=== PATIENT | male | born 1955 | race Caucasian/White ===

== ENCOUNTER → 2017-07-13 16:34 | Outpatient (CLI) | payer BC, SELFPAY ==
[2017-07-13 17:07] LABS: Bilirubin Urine UA NEGATIVE (NEGATIVE); Color Urine UA YELLOW; Glucose Urine UA NEGATIVE (Normal); Ketones Urine UA TRACE (NEGATIVE); Leukocyte Esterase Urine UA 1+ (NEGATIVE); Nitrite Urine UA POSITIVE (Negative); Occult Blood Urine UA NEGATIVE (Negative); Protein Urine UA NEGATIVE (Negative); Specific Gravity Urine UA 1.025 (1.000-1.035); Urobilinogen Urine UA 0.2 E.U./dL (0.2); pH Urine UA 5.5 (4.5-8.0)
[2017-07-13 17:27] LABS: Appearance Urine UA CLOUDY
[2017-07-13 17:43] LABS: Bacteria Urine Many (>30); Culture Indicated Urine Specimen Cultured; RBC Urine 0-1/HPF (0-5/HPF); WBC Urine 30-100/HPF (0-5/HPF)
[2017-07-13 17:52] LABS: BUN Creatinine Ratio 24.4 (6-22); Blood Urea Nitrogen 22 mg/dL (9-20); Calcium 8.9 mg/dL (8.4-10.2); Carbon Dioxide 31 mmol/L (22-32); Chloride 101 mmol/L (98-107); Estimated Glomerular Filt Rate > 60.0 mL/min (>60); Glucose 110 mg/dL (80-110); HEMOLYSIS 16 (0-50); Potassium 4.7 mmol/L (3.4-5.1); Sodium 142 mmol/L (137-145)
== END ==
PROVIDERS: PCP Family Medicine; Visit Provider Internal Medicine
DX: R35.0 Frequency of micturition (principal); J20.9 Acute bronchitis, unspecified
CPT/HCPCS: 36415; 80048; 81001; 87077; 87086; 87186

== ENCOUNTER 2017-07-13 22:21 | Emergency (ER) | payer BC, SELFPAY ==
[2017-07-13 22:25] VITALS: BP 156/102; PULSE 81; RESP 20; TEMP 36.7; O2SAT 98; BMI 27.6
--- NOTE | 2017-07-13 22:32 | DI.RAD.S_ITS ---
PROCEDURE: XR CHEST 2V INDICATIONS: Fever productive cough TECHNIQUE: 2 views of the chest were acquired. COMPARISON: [facility], CHEST 2 VIEW, 11/28/2012, 14:44. [facility], CHEST 2 VIEW, 12/01/2011, 13:07. FINDINGS: Surgical changes and devices: Bilateral shoulder postoperative change. Lungs and pleura: No pleural effusions or pneumothorax. Lungs are clear. Mediastinum: Mediastinal contours are normal. Heart size is normal. Bones and chest wall: No suspicious bony abnormalities. Soft tissues appear unremarkable. Old rib fractures. IMPRESSION: No radiographic evidence of acute cardiopulmonary pathology. Dictated by: Contreras Contreras M.D. on 07/14/2017 at 9:05 Approved by: Contreras Contreras M.D. on 07/14/2017 at 9:06
--- NOTE | 2017-07-13 22:33 | ED_ITS ---
HPI - URI/Sore Throat General Chief Complaint: Upper Respiratory Symptoms Stated Complaint: BLADDER INFECTION UPPER RESP Time Seen by Provider: 07/13/17 22:23 Source: patient Mode of arrival: ambulatory Limitations: no limitations History of Present Illness HPI Narrative: 61-year-old male here for evaluation for urinary and respiratory complaints. Patient states that for many months now he has had dysuria. He states that he works at a job where he has to hold his urine for an extended period of time and has limited access to water. He also states that he has had several weeks of a chronic cough that is keeping and up at night. He went to his primary doctor this morning and was given a prescription for Cefdinir he states he took 1 dose of this antibiotic. He came into the emergency department today because he did not receive a chest x-ray at his primary doctor' s visit and is still having urinary symptoms Related Data Previous Rx's Medication Instructions Recorded econazole 1 freddy TOPICAL BID #30 gm 09/15/16 amlodipine [Norvasc] 5 mg PO QDAY #90 tab 03/26/17 cefdinir 300 mg capsule 300 mg PO Q12H 10 Days #20 cap 07/13/17 levofloxacin 500 mg PO Q24H 5 Days #5 tab 07/13/17 phenazopyridine 100 mg PO TID PRN 2 Days #6 tab 07/13/17 Allergies Allergy/AdvReac Type Severity Reaction Status Date / Time amoxicillin [AMOXICILLIN] Allergy Unknown Verified 07/13/17 22:40 azithromycin [AZITHROMYCIN] Allergy Unknown Verified 07/13/17 22:40 erythromycin base Allergy Unknown Verified 07/13/17 22:40 [ERYTHROMYCIN BASE] Review of Systems Constitutional Denies chills, Denies fever(s), Denies lethargy and Denies weakness Cardiovascular Denies chest pain, Denies irregular heart rhythm, Denies lightheadedness, Denies palpitations, Denies dyspnea and Denies orthopnea Respiratory Reports chest congestion, Reports cough, Reports pain with cough and Denies dyspnea Gastrointestinal Gastrointestinal: Denies abdominal pain, Denies change in bowel habits, Denies diarrhea, Denies nausea and Denies vomiting Genitourinary Reports dysuria, Denies flank pain, Reports urinary frequency and Reports urinary hesitancy Musculoskeletal Denies back pain, Denies muscle weakness, Denies numbness and Denies tingling Integumentary/Breasts Denies pruritus, Denies erythema, Denies rash and Denies wounds Neurologic Denies numbness, Denies tingling and Denies weakness Endocrine Denies palpitations Hematologic/Lymphatic Denies easy bruising [facility] Medical History Work related injury (Chronic 2011) Surgical History History of shoulder surgery (Resolved 1977) Inguinal hernia (Resolved 1999) Social History Smoking Status: Never smoker Exam Initial Vital Signs Initial Vital Signs: Vital Signs Temperature 98.1 F 07/13/17 22:25 Pulse Rate 81 07/13/17 22:25 Respiratory Rate 20 07/13/17 22:25 Blood Pressure 156/102 H 07/13/17 22:25 Pulse Oximetry 98 07/13/17 22:25 Resp Effort & Inspection: normal respiratory effort, able to speak in complete sentences, no respiratory distress and no use of accessory muscles Auscultation: clear to auscultation bilaterally, no rales, no rhonchi and no wheezes GI Inspection: non-distended Palpation: soft, no hepatosplenomegaly, No guarding, No pulsatile mass and No tender Auscultation: normal bowel sounds Back/Spine/Pelvis Back: No back tenderness and No CVA tenderness Skin General: no rashes or lesions noted, No jaundice and No petechiae Neuro General: alert, oriented x3, gait normal and no focal motor deficits Speech: speech normal Course Orders Ordered: ED Orders 07/13/17 22:32 XR chest 2V Stat Discontinued Medications Phenazopyridine HCl (Pyridium) 100 mg PO NOW ONE Stop: 07/13/17 23:15 Last Admin: 07/13/17 23:25 Dose: 100 mg Vital Signs - 8 hr 07/13/17 22:25 07/13/17 23:29 Temperature 98.1 F 98.2 F Pulse Rate 81 82 Respiratory Rate 20 20 Blood Pressure 156/102 H 156/90 H Pulse Oximetry 98 99 MDM - URI/Sore Throat Imaging Data Chest x-ray: Attestation: I personally reviewed and interpreted this imaging study as follows: My impression: Normal size heart No acute process No signs of pneumonia MDM Narrative Medical decision making narrative: Patient had a postvoid residual of 0 cc. Not in respiratory distress. Chest x-ray does not show signs of a focal consolidation. Had a long discussion with the patient and his regarding his symptoms. Informed him that the antibiotic that he was given by his primary doctor should cover any respiratory or urinary infections. Informed him that I am not surprised that he continue to have symptoms since he has only had 1 dose of the antibiotics. Informed him that I would not consider this a treatment failure since he has only had 1 dose. Informed him that if he did not want to take this antibiotic we could switch him to something else such as Levaquin however I did not feel that this was necessary. He stated that he would like to switch antibiotics. He was also given a prescription for Pyridium. Informed him that if his symptoms continue despite these antibiotics he did need to talk with his primary doctor about potentially seeing a urologist. He was given return precautions he expressed understanding and agreement with plan Discharge Plan Departure Patient Disposition: Home, Self-Care Clinical Impression: Upper respiratory infection, Dysuria Discharge Date/Time: 07/13/17 23:30 Interventions: ED Discharge Assessment Last Done: 07/13/17 23:29 Instructions: DI for Dysuria -- Adult Activity Restrictions/Additional Instructions: Stop the antibiotics you were given earlier today and start the antibiotics you were given during this visit. Take them as directed. If your symptoms do not improve then you need to talk with your primary doctor about a consult to see a urologist. Return to the emergency department for any new or worsening symptoms Prescriptions: New phenazopyridine 100 mg tablet 100 mg PO TID PRN (Reason: pain) 2 Days Qty: 6 RF: 0 levofloxacin 500 mg tablet 500 mg PO Q24H 5 Days Qty: 5 RF: 0 No Action econazole 1 % cream 1 freddy Topical BID Qty: 30 RF: 0 amlodipine [Norvasc] 5 MG tablet 5 mg PO QDAY Qty: 90 RF: 3 cefdinir 300 mg capsule 300 mg PO Q12H 10 Days Qty: 20 RF: 0
[2017-07-13] MEDS: PHENAZOPYRIDINE 100 MG TABLET PO (23:25)
[2017-07-13 23:29] VITALS: BP 156/90; PULSE 82; RESP 20; TEMP 36.8; O2SAT 99
== END 2017-07-13 23:30 | disposition home or self-care (01) ==
PROVIDERS: Emergency Provider Emergency Medicine; PCP Family Medicine
DX: J06.9 Acute upper respiratory infection, unspecified (principal); R30.0 Dysuria
CPT/HCPCS: 51798; 71046; 99283

== ENCOUNTER → 2017-07-21 09:54 | Outpatient (CLI) | payer BC, SELFPAY ==
[2017-07-21 10:18] LABS: Bacteria Urine None Seen; RBC Urine None Seen (0-5/HPF); WBC Urine None Seen (0-5/HPF)
[2017-07-21 11:01] LABS: Appearance Urine UA CLEAR; Bilirubin Urine UA NEGATIVE (NEGATIVE); Color Urine UA YELLOW; Glucose Urine UA NEGATIVE (Normal); Ketones Urine UA NEGATIVE (NEGATIVE); Leukocyte Esterase Urine UA NEGATIVE (NEGATIVE); Nitrite Urine UA Negative (Negative); Occult Blood Urine UA NEGATIVE (Negative); Protein Urine UA NEGATIVE (Negative); Specific Gravity Urine UA <=1.005 (1.000-1.035); Urobilinogen Urine UA 0.2 E.U./dL (0.2); pH Urine UA 6.5 (4.5-8.0)
== END ==
PROVIDERS: Family Provider Urology; Visit Provider Internal Medicine
DX: Z12.5 Encounter for screening for malignant neoplasm of prostate (principal); R30.0 Dysuria
CPT/HCPCS: 36415; 81001; 84153

== ENCOUNTER → 2017-10-01 14:01 | Outpatient (CLI) | payer BC, SELFPAY | PROVIDERS: PCP Family Medicine; Visit Provider Urology | DX: R97.20 Elevated prostate specific antigen [PSA] (principal) | CPT/HCPCS: 36415; 84153 ==

== ENCOUNTER → 2018-04-10 09:31 | Outpatient (CLI) | payer BC, SELFPAY ==
[2018-04-10 11:19] LABS: Alanine Aminotransferase 34 IU/L (21-72); Albumin 4.1 g/dL (3.5-5.0); Albumin Globulin Ratio 1.9 (1.0-2.8); Alkaline Phosphatase 83 U/L (38-126); Aspartate Aminotransferase 28 IU/L (17-59); Bilirubin Total 0.6 mg/dL (0.2-1.3); Blood Urea Nitrogen 24 mg/dL (9-20); Calcium 9.3 mg/dL (8.4-10.2); Carbon Dioxide 31 mmol/L (22-32); Chloride 102 mmol/L (98-107); Estimated Glomerular Filt Rate > 60.0 mL/min (>60); Globulin 2.2 g/dL (1.7-4.1); Glucose 56 mg/dL (80-110); HEMOLYSIS < 15 (0-50); Potassium 5.1 mmol/L (3.4-5.1); Sodium 141 mmol/L (137-145); Total Protein 6.3 g/dL (6.3-8.2)
== END ==
PROVIDERS: Family Provider Urology; PCP Student in an Organized Health Care Education/Training Program; Visit Provider Registered Nurse
DX: I10 Essential (primary) hypertension (principal)
CPT/HCPCS: 36415; 80053

== ENCOUNTER → 2018-04-12 11:14 | Outpatient (CLI) | payer BC, SELFPAY ==
[2018-04-12 12:49] LABS: Cholesterol 158 mg/dL (140-199); HDL Cholesterol 48 mg/dL (40-60); LDL Cholesterol Calculated 99 mg/dL (<100); Triglycerides 54 mg/dL (35-150)
[2018-04-12 15:12] LABS: Vitamin D 25 Hydroxy (D3) 37.3 ng/mL (30.0-100.0)
== END ==
PROVIDERS: PCP Student in an Organized Health Care Education/Training Program; Visit Provider Student in an Organized Health Care Education/Training Program
DX: E55.9 Vitamin D deficiency, unspecified (principal); Z13.220 Encounter for screening for lipoid disorders
CPT/HCPCS: 36415; 80061; 82306

== ENCOUNTER → 2018-09-07 08:34 | Outpatient (CLI) | payer BC, SELFPAY | PROVIDERS: PCP Student in an Organized Health Care Education/Training Program; Visit Provider Physician Assistant | DX: R30.0 Dysuria (principal) | CPT/HCPCS: 87077; 87086; 87186 ==

== ENCOUNTER → 2018-09-25 10:33 | Outpatient (CLI) | payer BC, SELFPAY ==
[2018-09-25 12:45] LABS: Prostate Specific Antigen 3.77 ng/mL (0.10-4.00)
== END ==
PROVIDERS: Family Provider Student in an Organized Health Care Education/Training Program; PCP Student in an Organized Health Care Education/Training Program; Visit Provider Urology
DX: Z12.5 Encounter for screening for malignant neoplasm of prostate (principal)
CPT/HCPCS: 36415; 84153

== ENCOUNTER 2019-02-07 08:08 | Day surgery (SDC) | payer BC, SELFPAY ==
[2019-02-07 08:23] VITALS: BP 148/80; PULSE 88; RESP 20; TEMP 36.2; O2SAT 98; BMI 26.9
[2019-02-07] MEDS: SODIUM CHLORIDE 0.9% 1,000 ML 200 ML IV (08:33)
--- NOTE | 2019-02-07 08:45 | PM.HP.1 ---
History of Present Illness History of Present Illness Date Patient Seen: 02/07/19 Time Patient Seen: 08:45 Chief complaint: [id number] SCREENING COLONOSCOPY Narrative: This is a 63-year-old man with no history of colonoscopy. He has no history of hematochezia or melena. He denies any family history of colon polyps or colon cancers. He is here for his 1st screening colonoscopy. ROS: Thirteen system review is otherwise negative other than as mentioned below and in HPI. PE: GENERAL: Well groomed and cooperative. Appears stated age. Answers questions promptly and appropriately. Vital signs noted. HENT: Normocephalic, atraumatic. Hearing intact. Oral mucosa is pink and moist. EYES: Conjunctiva pink, sclera white, no periorbital swelling. CARDIOVASCULAR: Regular rate. No pedal edema. RESPIRATORY: Non-tachypneic, breathing comfortably on room air. GASTROINTESTINAL: Abdomen soft and non-distended GENITALURINARY: No flank tenderness. MUSCULOSKELETAL: Equal tone and mass bilaterally. SKIN: Warm, dry, soft, appropriate color for ethnicity. No other lesions, rashes, or wounds. NEURO: Alert and Oriented X 3. No gross sensory deficits, or cognitive issues. PSYCH: Appropriate affect and mood. Patient History Medical History Obstructive sleep apnea of adult (Chronic) Snoring (Chronic) Work related injury (Chronic 2011) Surgical History History of inguinal hernia repair (Resolved 1999) History of shoulder surgery (Resolved 1977) Family & Social History Social History: household members spouse Tobacco & Substance use: Smoking Status Never smoker alcohol intake current alcohol intake frequency 0-2 drinks per day Substance Use Type does not use Meds Home Medications and Allergies Home Medications Medication Instructions Recorded Confirmed Type losartan 25 mg tablet 25 mg PO DAILY #90 tab 04/12/18 02/07/19 Rx naproxen 500 mg PO PRN PRN MDD prn 02/07/19 02/07/19 History Allergies Allergy/AdvReac Type Severity Reaction Status Date / Time azithromycin [AZITHROMYCIN] Allergy Unknown Verified 02/07/19 08:16 Exam Vital Signs (past 8 hours): - 02/07/19 08:23 Temperature 97.2 F L Pulse Rate 88 Respiratory Rate 20 Blood Pressure 148/80 H Pulse Oximetry 98 Oxygen Delivery Method Room Air Assessment & Plan Assessment and plan (1) Colon cancer screening: Current visit: Yes Status: Acute (2) At average risk for colon cancer: Current visit: Yes Status: Acute
[2019-02-07] MEDS: ONDANSETRON 4 MG/2 ML INJ IV (08:50)
[2019-02-07] MEDS: fentaNYL 250 MCG/5 ML INJ IV (08:55)
[2019-02-07] MEDS: MIDAZOLAM 5 MG/5 ML VIAL IV (08:56)
--- NOTE | 2019-02-07 09:10 | PM.OP.ENDO ---
Operative Date/Time/Diagnoses Date of procedure: 02/07/19 Time of procedure: 09:10 Pre-op diagnosis: Average risk for colon cancer Post-op diagnosis: same Procedure & Clinicians Study performed: Colonoscopy Same procedure as scheduled: Yes Indications: Average risk for colon cancer, never had a screening colonoscopy Surgeon: Ramona Trammell Procedure Notes SCOAP/Timeout: Performed Procedure in detail: The patient was brought to the room and placed in left lateral decubitus position with all bony prominences padded. A time-out was performed and then the patient was given procedural sedation starting with 4 mg of Versed and 100 mcg of fentanyl. Vitals were monitored throughout the procedure and remained stable. Once adequately sedated the procedure was begun. A rectal exam was performed revealing no abnormalities. The colonoscope was then introduced to the rectum and advanced to the cecum in the usual fashion. The cecum was identified by the appendiceal orifice, the mucosal tri-fold, and the ileocecal valve. The scope was then retracted while rotating side to side and examining each mucosal fold. At the conclusion of the procedure retroflexion was performed and small grade 1-2 internal hemorrhoids without stigmata of bleeding were seen. The scope was then withdrawn from the rectum the procedure was concluded. The patient tolerated the procedure well and was transferred to the PACU in stable condition. Scope withdrawal time: 7 Sedation minutes: 17 Specimen(s): none sent Complications: none Impression: Normal colon Post-procedure Recommendations: Colonscopy in 10 years (Or sooner if any concerning symptoms for colon polyps or cancers arise) Follow up: as needed Disposition: PACU
[2019-02-07 09:15] VITALS: BP 112/62; PULSE 61; RESP 14; TEMP 35.9; O2SAT 94
[2019-02-07 09:20] VITALS: BP 113/79; PULSE 61; RESP 11; O2SAT 94
--- NOTE | 2019-02-07 09:20 | SUR.PHASEI ---
IV fluids not scanned in pre op - see I&O
[2019-02-07 09:25] VITALS: BP 112/72; PULSE 61; RESP 16; O2SAT 93
[2019-02-07 09:40] VITALS: BP 109/66; PULSE 60; RESP 20; TEMP 36.1; O2SAT 94
== END 2019-02-07 09:45 | disposition home or self-care (01) ==
PROVIDERS: Family Provider Student in an Organized Health Care Education/Training Program; PCP Student in an Organized Health Care Education/Training Program; Visit Provider Surgery
PROC: 0DJD8ZZ Inspection of Lower Intestinal Tract, Via Natural or Artificial Opening Endoscopic (ICD-10-PCS; CPT 45378; principal; 2019-02-07 08:30)
DX: Z12.11 Encounter for screening for malignant neoplasm of colon (principal); G47.33 Obstructive sleep apnea (adult) (pediatric); K64.0 First degree hemorrhoids
CPT/HCPCS: 45378; 99152; J2250; J2405; J3010

== ENCOUNTER → 2019-03-25 13:31 | Outpatient (CLI) | payer BC, SELFPAY ==
[2019-03-25 15:49] LABS: Appearance Urine UA SL CLOUDY; Bilirubin Urine UA NEGATIVE (NEGATIVE); Color Urine UA YELLOW; Glucose Urine UA NEGATIVE (Negative); Ketones Urine UA NEGATIVE (NEGATIVE); Leukocyte Esterase Urine UA 3+ (NEGATIVE); Nitrite Urine UA POSITIVE (Negative); Occult Blood Urine UA 2+ (Negative); Protein Urine UA TRACE (Negative); Specific Gravity Urine UA 1.015 (1.000-1.035); Urobilinogen Urine UA 0.2 E.U./dL (0.2); pH Urine UA 6.5 (4.5-8.0)
[2019-03-25 15:56] LABS: Amorphous Sediment Urine 1+; Bacteria Urine Many (>30); Culture Indicated Urine Specimen Cultured; Mucus Urine 1+ (Negative); RBC Urine 5-10/HPF (0-5/HPF); Squamous Epithelial Cell Urine 0-1 /HPF (0-5/HPF); WBC Urine >100/HPF (0-5/HPF)
== END ==
PROVIDERS: Family Provider Student in an Organized Health Care Education/Training Program; PCP Student in an Organized Health Care Education/Training Program; Referring Provider Student in an Organized Health Care Education/Training Program; Visit Provider Student in an Organized Health Care Education/Training Program
DX: R35.0 Frequency of micturition (principal)
CPT/HCPCS: 81001; 87077; 87086; 87186

== ENCOUNTER → 2019-03-28 15:03 | Outpatient (CLI) | payer BC, SELFPAY ==
--- NOTE | 2019-03-28 15:03 | DI.US.S_ITS ---
PROCEDURE: US SCROTUM INDICATIONS: SCROTAL SWELLING TECHNIQUE: Real-time scanning was performed of the scrotum and testicles, with image documentation. Color and pulse Doppler interrogation was performed of both testicles. COMPARISON: None. FINDINGS: Right: Testicle is normal in size at 4.7 x 3.4 x 2.8 cm, and homogenous in echotexture. Epididymis is normal in overall size and morphology. Large loculated hydrocele.. Overlying scrotal skin is normal in thickness. Color flow Doppler demonstrates mild increased asymmetric muscle right groin lymph node measuring 9 mm in short axis. Left: Testicle is normal in size at 5.1 x 2.3 x 2.7 cm, and homogeneous in echotexture. Epididymis is normal in overall size and morphology. No hydrocele or varicoceles. Overlying scrotal skin is normal in thickness. Doppler: Color and pulse Doppler demonstrate normal and symmetric arterial flow in both testicles. IMPRESSION: 1. Slight asymmetric blood flow within the right testis; otherwise the testicles appear normal. Findings may be related to mild early orchitis and clinical correlation and followup is recommended. 2. Loculated right hydrocele and developing pyocele cannot be excluded. 3. Prominent right groin lymph node. Recommend clinical correlation and management. Dictated by: Felice Fernández [facility] Interpreted: Carl Pino MD on 03/28/2019 at 16:59 Approved by: Carl Pino M.D. on 03/28/2019 at 17:51
--- NOTE | 2019-03-28 15:03 | DI.US.S_ITS ---
PROCEDURE: US RENAL COMPLETE INDICATIONS: RECURRENT UTI. EVALUATE FOR RETENTION TECHNIQUE: Real-time scanning was performed of the kidneys and bladder, with image documentation. COMPARISON: None. FINDINGS: Kidneys: Kidneys are normal in size. Right kidney measures 11.0 cm long; left kidney measures 11.7 cm long. Right renal cortical thickness is 1.8 cm; left renal cortical thickness is 2.0 cm. Renal cortical echotexture is normal. No hydronephrosis or nephrolithiasis. No suspicious solid mass lesions. Bladder: Pre-void bladder volume is 345 mL. Post-void residual is 177 mL. Pre-void images demonstrate no intraluminal masses or stones. On pre-void images, both the right and left ureteral jets are noted with color Doppler interrogation. (Of note, ureteral jets may not be detectable in up to 25% of cases due to insufficient differences in specific gravity between ureteral and bladder urine). Miscellaneous: No free pelvic fluid. IMPRESSION: 1. Kidneys are normal in sonographic appearance. 2. Post-void residual urinary bladder volume of 177 mL compatible with urinary retention. Dictated by: Dawna Mccord MD, PhD on 03/28/2019 at 16:44 Approved by: Dawna Mccord MD, PhD on 03/28/2019 at 16:45
== END ==
PROVIDERS: Family Provider Student in an Organized Health Care Education/Training Program; PCP Student in an Organized Health Care Education/Training Program; Referring Provider Student in an Organized Health Care Education/Training Program; Visit Provider Student in an Organized Health Care Education/Training Program
DX: N50.89 Other specified disorders of the male genital organs (principal); N39.0 Urinary tract infection, site not specified
CPT/HCPCS: 76770; 76870

== ENCOUNTER 2019-03-28 16:55 | Emergency (ER) | payer BC, SELFPAY ==
[2019-03-28] VITALS (7 sets, daily range): BP systolic 141–164; BP diastolic 70–86; PULSE 78–85; RESP 16–23; TEMP 37.5–38.3; O2SAT 95–97
--- NOTE | 2019-03-28 17:01 | DI.CT.S_ITS ---
PROCEDURE: CT ABDOMEN PELVIS W CON INDICATIONS: severe pelvic pain with swollen scrotum r/o lien's gangrene TECHNIQUE: After the administration of intravenous contrast, 5 mm thick sections acquired from the diaphragm to the symphysis. 5 mm coronal and sagittal reformats were acquired. For radiation dose reduction, the following was used: automated exposure control, adjustment of mA and/or kV according to patient size. COMPARISON: [facility], , SCROTUM, 03/28/2019, 15:57. FINDINGS: Image quality: Excellent. ABDOMEN: Lung bases: Lung bases are clear. Heart size is normal. Solid organs: Liver is normal in size and enhancement. Gallbladder is within normal limits. Biliary system is non dilated. Pancreas enhances normally. 1.1 cm cystic lesion noted at the junction of the head and the body of the pancreas which appears to communicate with the pancreatic duct. A 0.7 cm cystic lesion noted in the distal body of the pancreas. Spleen is normal in size and enhancement. No adrenal nodules. Kidneys demonstrate normal size and enhancement, without hydronephrosis. Peritoneum and bowel: Bowel loops demonstrate normal wall thickness and caliber. No free fluid or air. Nodes and vessels: No retroperitoneal or mesenteric adenopathy by size criteria. Aorta and inferior vena cava are normal in size. Miscellaneous: No ventral hernias. PELVIS: Genitourinary: Bladder wall thickness is normal. Prominent vascularity noted in the right scrotum compatible with hyperemia. There is a complex right scrotal fluid collection concerning for pyocele. No abscess identified in the perineum. Miscellaneous: No inguinal hernias or adenopathy. Bones: No suspicious bony lesions. No vertebral body compression fractures. Spine degenerative disc disease and facet arthropathy. IMPRESSION: 1. Right scrotal fluid collection concerning for pyocele. 2. Increased vascularity in the right scrotum compatible hyperemia which could be related to orchitis, epididymitis, scrotal pyocele or a combination of the all three. 3. 1.1 and 0.7 cm pancreatic cysts which may represent pseudocysts versus cystic pancreatic neoplasms. Recommend nonemergent MRI of the pancreas with contrast for definitive characterization. Dictated by: Dawna Mccord MD, PhD on 03/28/2019 at 19:06 Approved by: Dawna Mccord MD, PhD on 03/28/2019 at 19:14
--- NOTE | 2019-03-28 17:02 | DI.RAD.S_ITS ---
PROCEDURE: XR CHEST 1V INDICATIONS: fever, sepsis lien's disease TECHNIQUE: One view of the chest was acquired. COMPARISON: [facility], CR, XR CHEST 2V, 07/13/2017, 22:12. FINDINGS: Surgical changes and devices: Orthopedic screws involving the shoulders bilaterally are stable. Lungs and pleura: Lungs are clear. No pleural effusions or pneumothorax. Mediastinum: Mediastinal contours appear normal. Heart size is normal. Bones and chest wall: No suspicious bony lesions. Overlying soft tissues appear unremarkable. IMPRESSION: No acute cardiopulmonary disease process. Dictated by: Dawna Mccord MD, PhD on 03/28/2019 at 17:41 Approved by: Dawna Mccord MD, PhD on 03/28/2019 at 17:41
--- NOTE | 2019-03-28 17:19 | ED_ITS ---
HPI - Skin/Abscess/Foreign Bdy General Chief complaint: Skin/Abscess/Foreign Body Stated complaint: sent by doctor for gang green in his abdomen Time Seen by Provider: 03/28/19 17:01 Source: patient Mode of arrival: Ambulatory History of Present Illness HPI narrative: 63-year-old male nonsmoker with recent diagnosis of UTI presents with his at the request of his primary care provider for evaluation of painful, swollen, red scrotum and concern for sepsis. Patient had recently been treated as an outpatient for urinary tract infection, antibiotics were guided by a resulted culture and sensitivity. Since then patient has had some ongoing urinary symptoms but also complains of fever and some chills as well as nausea and increasing pain and swelling of his scrotum in the absence of injury. He denies any chest pain or shortness of breath and has had no abdominal pain. He denies any difficulty with bowel movements. MD complaint: abscess/boil and discoloration Onset (ago): day(s) Tetanus up to date: yes Location: genitals Severity: moderate Quality: aching Pain Consistency: constant Relieving factors: rest Exacerbating factors: movement Context: recent illness Associated symptoms: fever, chills and nausea Treatments prior to arrival: antibiotic Related Data Home Medications Medication Instructions Recorded Confirmed naproxen 500 mg PO PRN PRN MDD prn 02/07/19 03/28/19 Glucosamine Chondroitin 2 tab PO DAILY 03/28/19 03/28/19 calcium carbonate-vitamin D3 2 tab PO DAILY 03/28/19 03/28/19 [Caltrate 600 plus D] cholecalciferol (vitamin D3) 2,000 unit PO DAILY 03/28/19 03/28/19 [Vitamin D3] Previous Rx's Medication Instructions Recorded losartan 25 mg tablet 25 mg PO DAILY #90 tab 03/20/19 nitrofurantoin 100 mg PO Q12H 7 Days #14 cap 03/25/19 monohydrate/macrocrystals 100 mg capsule Allergies Allergy/AdvReac Type Severity Reaction Status Date / Time azithromycin [AZITHROMYCIN] Allergy Unknown Verified 03/28/19 17:08 Review of Systems Constitutional Constitutional: Reports chills, Reports fatigue, Reports fever(s), Denies frequent falls, Denies lethargy and Denies weakness Eyes Eyes: Denies change in vision, Denies eye discharge, Denies irritation and Denies loss of vision ENT Ears, Nose, Mouth, and Throat: Denies change in voice, Denies dizziness, Denies neck pain, Denies sore throat and Denies throat swelling Cardiovascular Cardiovascular: Denies chest pain, Denies irregular heart rhythm, Denies lightheadedness, Denies palpitations, Denies dyspnea, Denies dyspnea on exertion and Denies orthopnea Respiratory Respiratory: Denies cough, Denies dyspnea, Denies dyspnea on exertion and Denies wheezing Gastrointestinal Gastrointestinal: Denies abdominal pain, Denies change in bowel habits, Denies diarrhea, Reports nausea and Denies vomiting Genitourinary Genitourinary: Denies hematuria, Denies flank pain, Reports scrotal swelling, Reports testicular mass, Reports testicular pain, Denies urinary incontinence and Reports urinary urgency Musculoskeletal Musculoskeletal: Denies back pain, Denies muscle weakness, Denies neck pain, D enies numbness and Denies tingling Integumentary/Breasts Skin/Breast: Denies pruritus, Denies erythema, Denies rash and Denies wounds Neurologic Neurologic: Denies behavioral changes, Denies confusion, Denies dizziness, Denies frequent falls, Denies loss of vision, Denies numbness, Denies tingling and Denies weakness Psychiatric Psychiatric: Denies anxiety, Denies behavioral changes, Denies confusion, Denies depression, Denies homicidal ideation and Denies suicidal ideation Endocrine Endocrine: Reports fatigue, Denies flushing and Denies palpitations Hematologic/Lymphatic Hematologic/Lymphatic: Denies easy bruising Allergic/Immunologic Allergic/Immunologic: Denies urticaria, Denies throat swelling and Denies wheezing Patient History Medical History Obstructive sleep apnea of adult (Chronic) Snoring (Chronic) Work related injury (Chronic 2011) Surgical History History of inguinal hernia repair (Resolved 1999) History of shoulder surgery (Resolved 1977) Social History household members: spouse Smoking Status: Never smoker alcohol intake: current substance use type: does not use Smoking Status: Never smoker alcohol intake frequency: 0-2 drinks per day Substance Use Type: does not use Exam Narrative Exam Narrative: GENERAL: [63] year old patient appears stated age. Well- nourished, well-developed patient, in mild distress, ill-appearing HEAD: Atraumatic. Normocephalic. EYES: Pupils equal round and reactive. Extraocular motions intact. No scleral icterus. No injection or drainage. ENT: Nose without bleeding, purulent drainage. Throat without erythema, tonsillar hypertrophy or exudate. Airway patent. NECK: Trachea midline. Non tender CARDIOVASCULAR: Regular rate and rhythm without murmurs, gallops, or rubs. RESPIRATORY: Clear to auscultation. Breath sounds equal bilaterally. No wheezes, rales, or rhonchi. GASTROINTESTINAL: Abdomen soft, non-tender, nondistended. : tender impressively swollen and tender R testicle. No scrotal wall edema or tenderness. No pain out of proportion, no crepitance or black/necrotic tissue. Pain radiates up into R inguinal region EXTREMITIES: No edema or joint tenderness. BACK: Nontender without deformity or crepitance. No flank tenderness. NEURO: AOx3. SKIN: No rash or erythema of visible areas Initial Vital Signs Initial Vital Signs: Vital Signs Temperature 99.5 F 03/28/19 17:05 Pulse Rate 78 03/28/19 17:05 Respiratory Rate 18 03/28/19 17:05 Blood Pressure 164/86 H 03/28/19 17:05 Pulse Oximetry 97 03/28/19 17:05 Course Course Course Narrative: patient meets SIRS criteria at 2037. RR 23 at 2030, Temp 101.0F at 2037. Suspected infection from onset. Patient Meets sepsis criteria at 2037. Verbal order for 2nd bag of fluid at this time, computer order of 30mL/kg entered at 2112. Transport arrives at 2114. Orders Ordered: ED Orders 03/28/19 17:01 CT abdomen pelvis w con Stat 03/28/19 17:02 XR chest 1V Stat Complete Blood Count AUTO DIFF Stat 03/28/19 17:15 C-Reactive Protein Quant Stat Comprehensive Metabolic Panel Stat Creatine Kinase Stat Erythrocyte Sedimentation Rate Stat Lactate (Lactic Acid) Stat Procalcitonin Stat 03/28/19 18:00 Blood Culture Stat 03/28/19 18:37 Urine Culture Stat Urine Microscopic Stat Discontinued Medications Cefepime HCl 2 gm/ Sodium (Chloride) 100 mls @ 200 mls/hr IV NOW ONE Stop: 03/28/19 17:02 Last Infusion: 03/28/19 18:25 Dose: 200 mls/hr Documented by: Admin: 03/28/19 17:40 Dose: 200 mls/hr Documented by: SASHA Vancomycin HCl/Dextrose (Vancomycin) 1,500 mg in 300 mls @ 200 mls/hr IV Q24H ASHLEY Last Admin: 03/28/19 18:37 Dose: Not Given Documented by: SASHA Vancomycin HCl/Dextrose (Vancomycin) 1,500 mg in 300 mls @ 200 mls/hr IV NOW ONE Stop: 03/28/19 18:59 Last Infusion: 03/28/19 20:37 Dose: 0 mls/hr Documented by: Admin: 03/28/19 18:33 Dose: 200 mls/hr Documented by: SASHA Sodium Chloride (Normal Saline 0.9%) 1,000 mls @ 1,000 mls/hr IV BOLUS ONE Stop: 03/28/19 18:41 Last Infusion: 03/28/19 18:38 Dose: 0 mls/hr Documented by: Admin: 03/28/19 17:43 Dose: 1,000 mls/hr Documented by: SASHA Sodium Chloride (Normal Saline 0.9%) 1,000 mls @ 1,000 mls/hr IV BOLUS ONE Stop: 03/28/19 21:41 Sodium Chloride (Normal Saline 0.9%) 2,483.43 mls @ 827.81 mls/hr 30 ml/kg infuse over 3 hr (2483.43 ml) IV NOW ONE Stop: 03/29/19 00:11 Ketorolac Tromethamine (Toradol) 15 mg IV NOW ONE Stop: 03/28/19 20:31 Last Admin: 03/28/19 20:38 Dose: 15 mg Documented by: DARREN Phenazopyridine HCl (Pyridium) 100 mg PO NOW ONE Stop: 03/28/19 19:56 Last Admin: 03/28/19 20:04 Dose: 100 mg Documented by: DARREN Consultations Consultation #1: call to Dr. Grover (patient's urologist at [facility]) who was happy to consult on this patient in requests transfer but suggests patient be admitted to hospitalist. She asked that patient be NPO after midnight as he is a surgical candidate Consultation #2: Hospitalist at [facility] is happy to accept Vital Signs Vital signs: Vital Signs - 8 hr 03/28/19 17:05 03/28/19 18:38 03/28/19 19:13 Temperature 99.5 F Pulse Rate 78 85 80 Respiratory Rate 18 16 16 Blood Pressure 164/86 H Blood Pressure [Right Arm] 141/70 H 164/78 H Pulse Oximetry 97 95 96 03/28/19 19:24 03/28/19 19:30 03/28/19 20:30 Temperature 100.3 F H Pulse Rate 83 82 Respiratory Rate 19 23 Blood Pressure Blood Pressure [Right Arm] 157/73 H 159/82 H Pulse Oximetry 97 03/28/19 20:38 Temperature 101 F H Pulse Rate Respiratory Rate Blood Pressure Blood Pressure [Right Arm] Pulse Oximetry MDM - Skin/Abscess/Foreign Bdy Lab Data Result diagrams: 03/28/19 17:02 03/28/19 17:15 Labs: Lab Results 03/28/19 03/28/19 03/28/19 Range/Units 17:02 17:15 17:15 WBC 9.3 (4.5-11.0) X10^3/uL RBC 4.89 (4.5-5.9) X10^6/uL Hgb 15.7 (13.5-17.5) g/dL Hct 44.1 (41-53) % MCV 90.2 (80-100) fL MCH 32.0 (26-34) PG MCHC 35.5 (30-36) % RDW 12.7 (11.6-14.8) % Plt Count 239 (150-400) X10^3/uL Neut % (Auto) 80.7 H (50-75) % Lymph % (Auto) 11.3 L (25-40) % [place] % (Auto) 7.2 (3-14) % Eos % (Auto) 0.3 L (2-4) % Baso % (Auto) 0.5 (0-2) % Neut # (Auto) 7500 H (9113-4583) /uL Lymph # (Auto) 1100 (2933-5996) /uL [place] # (Auto) 700 (0-900) /uL Eos # (Auto) 0 (0-450) /uL Baso # (Auto) 0 (0-100) /uL ESR 23 H (0-15) MM/HR Sodium (137-145) mmol/L Potassium (3.4-5.1) mmol/L Chloride (98-107) mmol/L Carbon Dioxide (22-32) mmol/L BUN (9-20) mg/dL Creatinine (0.66-1.25) mg/dL Estimated GFR (>60) mL/min BUN/Creatinine Ratio (6-22) Glucose (80-110) mg/dL Lactate (0.7-2.1) mmol/L Calcium (8.4-10.2) mg/dL Total Bilirubin (0.2-1.3) mg/dL AST (17-59) IU/L ALT (<50) IU/L Alkaline Phosphatase (38-126) U/L Total Creatine Kinase 50 L (55-170) U/L C-Reactive Protein 5.4 H (<1.0) mg/dL Total Protein (6.3-8.2) g/dL Albumin (3.5-5.0) g/dL Globulin (1.7-4.1) g/dL Albumin/Globulin Ratio (1.0-2.8) Procalcitonin (<0.5) ng/mL Urine RBC (0-5/HPF) Urine WBC (0-5/HPF) Urine Bacteria (None) Ur Culture Indicated? 03/28/19 03/28/19 03/28/19 Range/Units 17:15 17:15 17:15 WBC (4.5-11.0) X10^3/uL RBC (4.5-5.9) X10^6/uL Hgb (13.5-17.5) g/dL Hct (41-53) % MCV (80-100) fL MCH (26-34) PG MCHC (30-36) % RDW (11.6-14.8) % Plt Count (150-400) X10^3/uL Neut % (Auto) (50-75) % Lymph % (Auto) (25-40) % [place] % (Auto) (3-14) % Eos % (Auto) (2-4) % Baso % (Auto) (0-2) % Neut # (Auto) (8291-7910) /uL Lymph # (Auto) (7870-0168) /uL [place] # (Auto) (0-900) /uL Eos # (Auto) (0-450) /uL Baso # (Auto) (0-100) /uL ESR (0-15) MM/HR Sodium 135 L (137-145) mmol/L Potassium 4.1 (3.4-5.1) mmol/L Chloride 97 L (98-107) mmol/L Carbon Dioxide 28 (22-32) mmol/L BUN 14 (9-20) mg/dL Creatinine 0.80 (0.66-1.25) mg/dL Estimated GFR > 60.0 (>60) mL/min BUN/Creatinine Ratio 17.5 (6-22) Glucose 113 H (80-110) mg/dL Lactate 1.0 (0.7-2.1) mmol/L Calcium 9.5 (8.4-10.2) mg/dL Total Bilirubin 1.1 (0.2-1.3) mg/dL AST 32 (17-59) IU/L ALT 24 (<50) IU/L Alkaline Phosphatase 95 (38-126) U/L Total Creatine Kinase (55-170) U/L C-Reactive Protein (<1.0) mg/dL Total Protein 7.7 (6.3-8.2) g/dL Albumin 4.4 (3.5-5.0) g/dL Globulin 3.3 (1.7-4.1) g/dL Albumin/Globulin Ratio 1.3 (1.0-2.8) Procalcitonin < 0.05 (<0.5) ng/mL Urine RBC (0-5/HPF) Urine WBC (0-5/HPF) Urine Bacteria (None) Ur Culture Indicated? 03/28/19 Range/Units 18:37 WBC (4.5-11.0) X10^3/uL RBC (4.5-5.9) X10^6/uL Hgb (13.5-17.5) g/dL Hct (41-53) % MCV (80-100) fL MCH (26-34) PG MCHC (30-36) % RDW (11.6-14.8) % Plt Count (150-400) X10^3/uL Neut % (Auto) (50-75) % Lymph % (Auto) (25-40) % [place] % (Auto) (3-14) % Eos % (Auto) (2-4) % Baso % (Auto) (0-2) % Neut # (Auto) (4414-9097) /uL Lymph # (Auto) (2980-6386) /uL [place] # (Auto) (0-900) /uL Eos # (Auto) (0-450) /uL Baso # (Auto) (0-100) /uL ESR (0-15) MM/HR Sodium (137-145) mmol/L Potassium (3.4-5.1) mmol/L Chloride (98-107) mmol/L Carbon Dioxide (22-32) mmol/L BUN (9-20) mg/dL Creatinine (0.66-1.25) mg/dL Estimated GFR (>60) mL/min BUN/Creatinine Ratio (6-22) Glucose (80-110) mg/dL Lactate (0.7-2.1) mmol/L Calcium (8.4-10.2) mg/dL Total Bilirubin (0.2-1.3) mg/dL AST (17-59) IU/L ALT (<50) IU/L Alkaline Phosphatase (38-126) U/L Total Creatine Kinase (55-170) U/L C-Reactive Protein (<1.0) mg/dL Total Protein (6.3-8.2) g/dL Albumin (3.5-5.0) g/dL Globulin (1.7-4.1) g/dL Albumin/Globulin Ratio (1.0-2.8) Procalcitonin (<0.5) ng/mL Urine RBC 10-30/hpf H (0-5/HPF) Urine WBC 30-100/hpf H (0-5/HPF) Urine Bacteria Many (>30) H (None) Ur Culture Indicated? Culture not indicate Urine Dip Bedside Urine Glucose Negative Bedside Urine Bilirubin - Negative Bedside Urine Ketone +/- 5 Urine Specific [place] 1.010 Bedside Urine Occult Blood +++ Bedside Urine pH 7.0 Bedside Urine Protein +/- 15 Bedside Urine Urobilinogen - Negative Bedside Urine Nitrite - Negative Bedside Urine Leukocytes +++ [address] scan - abdomen/pelvis: Radiologist's Impression: Chart Viewer Diagnostics DATE TYPE STATUS AUTHOR Hx 03/28/19 17:02 Dawna Mccord 03/28/19 17:01 Ghulam Mccordence 03/28/19 15:03 Carl Pino 03/28/19 15:03 Dawna Mccord 02/07/19 08:08 07/13/17 22:32 Kali Contreras Charles P 63, M0 1955 [facility], [facility] ED R08 82.781kg Skin/Abscess/Foreign Body Search Chart No Data to Display ONSET 04/30/13 Today 20:38 Jesus Buckner 63 M 1955 [place] [address] CT Scan Report Signed Patient: Jesus Buckner PMR#: [id number] : 5Acct:[id number] Age/Sex: 63 / MDate of Service: 03/28/19 Loc: ED Accession Number: [id number] Procedure: CT abdomen pelvis w con Ordering Provider: Brandt Pace MD PROCEDURE: CT ABDOMEN PELVIS W CON INDICATIONS: severe pelvic pain with swollen scrotum r/o lien's gangrene TECHNIQUE: After the administration of intravenous contrast, 5 mm thick sections acquired from the diaphragm to the symphysis. 5 mm coronal and sagittal reformats were acquired. For radiation dose reduction, the following was used: automated exposure control, adjustment of mA and/or kV according to patient size. COMPARISON: [facility], , [place] SCROTUM, 03/28/2019, 15:57. FINDINGS: Image quality: Excellent. ABDOMEN: Lung bases: Lung bases are clear. Heart size is normal. Solid organs: Liver is normal in size and enhancement. Gallbladder is within normal limits. Biliary system is non dilated. Pancreas enhances normally. 1.1 cm cystic lesion noted at the junction of the head and the body of the pancreas which appears to communicate with the pancreatic duct. A 0.7 cm cystic lesion noted in the distal body of the pancreas. Spleen is normal in size and enhancement. No adrenal nodules. Kidneys demonstrate normal size and enhancement, without hydronephrosis. Peritoneum and bowel: Bowel loops demonstrate normal wall thickness and caliber. No free fluid or air. Nodes and vessels: No retroperitoneal or mesenteric adenopathy by size cri teria. Aorta and inferior vena cava are normal in size. Miscellaneous: No ventral hernias. PELVIS: Genitourinary: Bladder wall thickness is normal. Prominent vascularity noted in the right scrotum compatible with hyperemia. There is a complex right scrotal fluid collection concerning for pyocele. No abscess identified in the perineum. Miscellaneous: No inguinal hernias or adenopathy. Bones: No suspicious bony lesions. No vertebral body compression fractures. Spine degenerative disc disease and facet arthropathy. IMPRESSION: 1. Right scrotal fluid collection concerning for pyocele. 2. Increased vascularity in the right scrotum compatible hyperemia which could be related to orchitis, epididymitis, scrotal pyocele or a combination of the all three. 3. 1.1 and 0.7 cm pancreatic cysts which may represent pseudocysts versus cystic pancreatic neoplasms. Recommend nonemergent MRI of the pancreas with contrast for definitive characterization. Dictated by: Dawna Mccord MD, PhD on 03/28/2019 at 19:06 Approved by: Dawna Mccord MD, PhD on 03/28/2019 at 19:14 Critical Care Time Critical Care Time Critical Care Time: Yes Total Critical Care Time: 30 Attestation: The high probability of a clinically significant, sudden or life threatening deterioration of the [CV, genitourinary] system(s) required my full and direct attention, intervention and personal management. The aggregate critical care time was [30] minutes. This time is in addition to time spent performing reported procedures but includes the following: [x] Data Review and interpretation [x] Patient assessment and monitoring of vital signs [x] Documentation [x] Medication orders and management Discharge Plan Departure Patient Disposition: [facility] Clinical Impression: Pyocele Discharge Date/Time: 03/28/19 21:38 Prescriptions: No Action losartan 25 mg tablet 25 mg PO DAILY Qty: 90 RF: 1 nitrofurantoin monohyd/m-cryst 100 mg capsule 100 mg PO Q12H 7 Days Qty: 14 RF: 0 naproxen 500 mg tablet 500 mg PO PRN MDD prn PRN (Reason: Pain (Scale Score 1-3)) RF: 0 cholecalciferol (vitamin D3) [Vitamin D3] 50 mcg (2,000 unit) Capsule 2,000 unit PO DAILY RF: 0 Caltrate 600 plus D 600 mg (1,500 mg)-800 unit Tablet,Chewable 2 tab PO DAILY RF: 0 Glucosamine Chondroitin 2 tab PO DAILY RF: 0 Referrals: Pablo Salmeron MD [Primary Care Provider] -
[2019-03-28 17:39] LABS: Add Manual Diff / Slide Review NO; Basophils Absolute Auto 0 /uL (0-100); Basophils Percent Auto 0.5 % (0-2); Eosinophils Absolute Auto 0 /uL (0-450); Eosinophils Percent Auto 0.3 % (2-4); Hematocrit 44.1 % (41-53); Hemoglobin 15.7 g/dL (13.5-17.5); Lymphocytes Absolute Auto 1100 /uL (1100-4500); Lymphocytes Percent Auto 11.3 % (25-40); Mean Corpuscular HGB Conc 35.5 % (30-36); Mean Corpuscular Volume 90.2 fL (80-100); Monocytes Absolute Auto 700 /uL (0-900); Monocytes Percent Auto 7.2 % (3-14); Neutrophils Absolute Auto 7500 /uL (1500-7000); Neutrophils Percent Auto 80.7 % (50-75); Platelet Count 239 X10^3/uL (150-400); Red Blood Cell Count 4.89 X10^6/uL (4.5-5.9); Red Cell Distribution Width 12.7 % (11.6-14.8); White Blood Cell Count 9.3 X10^3/uL (4.5-11.0)
[2019-03-28] MEDS: CEFEPIME 2 GM in SODIUM CHLORIDE 0.9% 100 ML 200 ML IV (17:40)
[2019-03-28] MEDS: SODIUM CHLORIDE 0.9% 1,000 ML 1000 ML IV (17:43)
[2019-03-28 17:52] LABS: Alanine Aminotransferase 24 IU/L (<50); Albumin 4.4 g/dL (3.5-5.0); Albumin Globulin Ratio 1.3 (1.0-2.8); Alkaline Phosphatase 95 U/L (38-126); Aspartate Aminotransferase 32 IU/L (17-59); BUN Creatinine Ratio 17.5 (6-22); Bilirubin Total 1.1 mg/dL (0.2-1.3); Blood Urea Nitrogen 14 mg/dL (9-20); Calcium 9.5 mg/dL (8.4-10.2); Carbon Dioxide 28 mmol/L (22-32); Chloride 97 mmol/L (98-107); Estimated Glomerular Filt Rate > 60.0 mL/min (>60); Globulin 3.3 g/dL (1.7-4.1); Glucose 113 mg/dL (80-110); HEMOLYSIS < 15 (0-50); Potassium 4.1 mmol/L (3.4-5.1); Sodium 135 mmol/L (137-145); Total Protein 7.7 g/dL (6.3-8.2)
[2019-03-28 17:54] LABS: C-Reactive Protein Quant 5.4 mg/dL (<1.0); Creatine Kinase 50 U/L (55-170); Erythrocyte Sedimentation Rate 23 MM/HR (0-15)
[2019-03-28 18:14] LABS: Procalcitonin < 0.05 ng/mL (<0.5)
[2019-03-28] MEDS: VANCOMYCIN 1,500 MG/300 ML FROZ.PIGGY 200 MG IV (18:33)
--- NOTE | 2019-03-28 18:43 | PC.NURSE ---
Dr. Renae did examination on patient's groin.
[2019-03-28 19:02] LABS: Bacteria Urine Many (>30); RBC Urine 10-30/HPF (0-5/HPF); WBC Urine 30-100/HPF (0-5/HPF)
[2019-03-28] MEDS: PHENAZOPYRIDINE 100 MG TABLET PO (20:04)
[2019-03-28] MEDS: KETOROLAC 60 MG/2 ML VIAL 15 MG IV (20:38)
== END 2019-03-28 21:38 | disposition short-term general hospital (02) ==
PROVIDERS: Emergency Medicine; Emergency Provider Emergency Medicine; Family Provider Student in an Organized Health Care Education/Training Program; PCP Student in an Organized Health Care Education/Training Program
DX: N43.1 Infected hydrocele (principal); N50.89 Other specified disorders of the male genital organs; N39.0 Urinary tract infection, site not specified
CPT/HCPCS: 36415; 71045; 74177; 76770; 76870; 80053; 81003; 81015; 82550; 83605; 84145; 85025; 85651; 86140; 87040; 87086; 96365; 96367; 96375; 99284; 99285; J0692; J1885

== ENCOUNTER → 2019-05-19 10:24 | Outpatient (CLI) | payer BC, SELFPAY ==
[2019-05-19 10:56] LABS: RBC Urine None Seen (0-5/HPF)
[2019-05-19 12:12] LABS: Bilirubin Urine UA NEGATIVE (NEGATIVE); Color Urine UA YELLOW; Glucose Urine UA NEGATIVE (Negative); Ketones Urine UA NEGATIVE (NEGATIVE); Leukocyte Esterase Urine UA 3+ (NEGATIVE); Nitrite Urine UA NEGATIVE (Negative); Occult Blood Urine UA NEGATIVE (Negative); Protein Urine UA NEGATIVE (Negative); Urobilinogen Urine UA 0.2 E.U./dL (0.2)
[2019-05-19 12:28] LABS: Amorphous Sediment Urine 1+; Appearance Urine UA Slightly Cloudy; Bacteria Urine Moderate (10-30); Culture Indicated Urine Specimen Cultured; Squamous Epithelial Cell Urine 1-5 /HPF (0-5/HPF); WBC Urine 10-30/HPF (0-5/HPF)
== END ==
PROVIDERS: Family Provider Student in an Organized Health Care Education/Training Program; PCP Student in an Organized Health Care Education/Training Program; Referring Provider Student in an Organized Health Care Education/Training Program; Visit Provider Student in an Organized Health Care Education/Training Program
DX: R30.0 Dysuria (principal)
CPT/HCPCS: 81001; 87077; 87086; 87186

== ENCOUNTER → 2019-05-26 15:46 | Outpatient (CLI) | payer BC, SELFPAY ==
[2019-05-26 16:02] LABS: RBC Urine None Seen (0-5/HPF)
[2019-05-26 16:33] LABS: Appearance Urine UA CLEAR; Bilirubin Urine UA NEGATIVE (NEGATIVE); Color Urine UA YELLOW; Glucose Urine UA NEGATIVE (Negative); Ketones Urine UA NEGATIVE (NEGATIVE); Leukocyte Esterase Urine UA TRACE (NEGATIVE); Nitrite Urine UA NEGATIVE (Negative); Occult Blood Urine UA NEGATIVE (Negative); Protein Urine UA NEGATIVE (Negative); Urobilinogen Urine UA 0.2 E.U./dL (0.2)
[2019-05-26 16:51] LABS: Bacteria Urine Occasional (0-1); Culture Indicated Urine Specimen Cultured; Squamous Epithelial Cell Urine 0-1 /HPF (0-5/HPF); WBC Urine 1-5/HPF (0-5/HPF)
== END ==
PROVIDERS: Family Provider Student in an Organized Health Care Education/Training Program; PCP Student in an Organized Health Care Education/Training Program; Referring Provider Student in an Organized Health Care Education/Training Program; Visit Provider Urology
DX: N45.2 Orchitis (principal)
CPT/HCPCS: 81001; 87086

== ENCOUNTER → 2019-09-11 12:17 | Outpatient (CLI) | payer MEDICARE, OTHER, SELFPAY ==
--- NOTE | 2019-09-11 12:20 | DI.RAD.S_ITS ---
PROCEDURE: XR ORBIT RT INDICATIONS: R/o ocular metal prior to MRI TECHNIQUE: 2 views of the orbits acquired. COMPARISON: None. FINDINGS: Bones: No fractures; orbital rims appear intact throughout. No suspicious bony lesions. Visualized sinuses appear clear. Soft tissues: No suspicious soft tissue calcifications or densities. IMPRESSION: No radiopaque foreign body. Dictated by: Damián Ray M.D. on 09/11/2019 at 13:17 Approved by: Damián Ray M.D. on 09/11/2019 at 13:17
--- NOTE | 2019-09-11 12:20 | DI.RAD.S_ITS ---
PROCEDURE: XR ORBIT LT INDICATIONS: R/o ocular metal prior to MRI TECHNIQUE: 2 views of the orbits acquired. COMPARISON: None. FINDINGS: Bones: No fractures; orbital rims appear intact throughout. No suspicious bony lesions. Visualized sinuses appear clear. Dental hardware incidentally noted. Soft tissues: No suspicious soft tissue calcifications or densities. IMPRESSION: No radiopaque foreign body identified. Dictated by: Damián Ray M.D. on 09/11/2019 at 13:16 Approved by: Damián Ray M.D. on 09/11/2019 at 13:17
== END ==
PROVIDERS: Family Provider Student in an Organized Health Care Education/Training Program; PCP Student in an Organized Health Care Education/Training Program; Referring Provider Student in an Organized Health Care Education/Training Program; Visit Provider Student in an Organized Health Care Education/Training Program
DX: Z13.5 Encounter for screening for eye and ear disorders (principal); Z01.818 Encounter for other preprocedural examination
CPT/HCPCS: 70200

== ENCOUNTER → 2019-09-12 07:07 | Outpatient (CLI) | payer MEDICARE, OTHER, SELFPAY ==
[2019-09-12 08:13] LABS: Lipase 213 U/L (23-300)
[2019-09-17 09:28] LABS: Testosterone Free 16.76 ng/dL (5.00-21.00); Testosterone Total 838.2 ng/dL (264.0-916.0)
== END ==
PROVIDERS: Family Provider Student in an Organized Health Care Education/Training Program; PCP Student in an Organized Health Care Education/Training Program; Referring Provider Student in an Organized Health Care Education/Training Program; Visit Provider Student in an Organized Health Care Education/Training Program
DX: N62 Hypertrophy of breast (principal); R68.82 Decreased libido; K86.9 Disease of pancreas, unspecified
CPT/HCPCS: 36415; 83690; 84402; 84403; 84443

== ENCOUNTER → 2019-09-15 18:09 | Outpatient (CLI) | payer MEDICARE, OTHER, SELFPAY ==
--- NOTE | 2019-09-15 18:11 | DI.MRI.S_ITS ---
PROCEDURE: MR ABDOMEN WO/W CON INDICATIONS: pancreatic lesions TECHNIQUE: Coronal HASTE, axial 2D FLASH in- and [id number]; axial breath-hold T2 FSE with fat saturation from the hepatic dome to the iliac crests. Oblique coronal thin-slice and radial thick slab HASTE through the biliary system. Dynamic axial VIBE during administration of contrast. Post-contrast coronal VIBE or 2D FLASH with fat saturation from the hepatic dome to the iliac crests. Optional diffusion weighted imaging and ADC may be performed. COMPARISON: [facility], CT, CT ABDOMEN PELVIS W CON, 03/28/2019, 18:42. FINDINGS: Image quality: Excellent. Pancreas and biliary system: With reference to the prior CT scanning performed with contrast 03/28/19 no change in 2 small cysts previously described located at the pancreatic neck and pancreatic body respectively has developed. The study is performed without contrast at the clinicians direction. Solid organs: Liver is normal in size and enhancement. Gallbladder appears normal . Spleen is normal in size and enhancement. No adrenal nodules. Kidneys are normal in size and enhancement, without hydronephrosis. Nodes and vessels: No retroperitoneal or mesenteric adenopathy by size criteria. Aorta and inferior vena cava are normal in size. Bowel and peritoneum: Unenhanced bowel loops are normal in caliber throughout. No free fluid. Lung bases: No basal pleural effusions. Heart size is normal. Bones and soft tissues: No ventral hernias. Bone marrow is normal in overall signal. IMPRESSION: 2 small pancreatic cysts are stable over time with reference to the CT scanning from 03/28/19. No growing mass lesion is found. No adjacent adenopathy is seen. Dictated by: Darrell Valdez M.D. on 09/16/2019 at 10:36 Approved by: Darrell Valdez M.D. on 09/16/2019 at 10:45
== END ==
PROVIDERS: Family Provider Student in an Organized Health Care Education/Training Program; PCP Student in an Organized Health Care Education/Training Program; Referring Provider Student in an Organized Health Care Education/Training Program; Visit Provider Student in an Organized Health Care Education/Training Program
DX: K86.2 Cyst of pancreas (principal); R68.82 Decreased libido; N62 Hypertrophy of breast
CPT/HCPCS: 74183

== ENCOUNTER → 2019-11-13 08:55 | Outpatient (CLI) | payer MEDICARE, OTHER, SELFPAY ==
[2019-11-13 16:07] LABS: Prostate Specific Antigen 2.29 ng/mL (0.10-4.00)
== END ==
PROVIDERS: Family Provider Student in an Organized Health Care Education/Training Program; PCP Student in an Organized Health Care Education/Training Program; Referring Provider Urology; Visit Provider Urology
DX: Z12.5 Encounter for screening for malignant neoplasm of prostate (principal)
CPT/HCPCS: 36415; 84153; G0103

== ENCOUNTER 2020-01-05 12:14 | Emergency (ER) | payer MEDICARE, OTHER, SELFPAY ==
[2020-01-05] VITALS (8 sets, daily range): BP systolic 113–146; BP diastolic 58–79; PULSE 61–74; RESP 14; O2SAT 96–100; BMI 25.1
--- NOTE | 2020-01-05 12:30 | DI.RAD.S_ITS ---
PROCEDURE: XR FINGER LT MIN 2V INDICATIONS: laceration from circular saw digit 2 TECHNIQUE: AP hand, 2 views of the 2nd digit acquired. COMPARISON: None. FINDINGS: Bones: There is a small focus of cortical disruption along the radial aspect of the 2nd middle phalanx suggestive of a small nondisplaced fracture. No displaced fractures or dislocations. Soft tissues: There is soft tissue swelling of the 2nd digit with a soft tissue laceration along the radial aspect. No definite radiopaque foreign bodies although evaluation is limited by external dressing. IMPRESSION: 1. Soft tissue laceration of the 2nd digit with a small focus of cortical disruption along the radial aspect of the 2nd middle phalanx. Dictated by: Sebastián Lopez M.D. on 01/05/2020 at 13:05 Approved by: Sebastián Lopez M.D. on 01/05/2020 at 13:22
--- NOTE | 2020-01-05 13:04 | ED.WOUNDLAC ---
HPI - Wound/Laceration <DEWAYNE Lal - Last Filed: 01/05/20 22:05> General Chief Complaint: Wound/Laceration Stated Complaint: Cut On Left Hand Time Seen by Provider: 01/05/20 12:41 Source: patient and family Mode of arrival: Wheelchair Limitations: no limitations History of Present Illness HPI narrative: This is a 64 year male, nonsmoker, who has medical history significant for pancreatic lesion, hypertension, low back pain, left thumb surgery presents to ED with significant other with chief complain of deep laceration to non dominant, left hand, index finger laceration from a table saw which occurred 1 hour ago. Patient reports he was working on a project and would his kicked back and sustain a laceration. Patient reports last tetanus was April this year. Patient reports numbness to radial aspect of affected finger and reports unable to deviate his finger in radial aspect. Patient reports pain is about 8/10 at this time. He had surgery by Dr. Perez to repair thumb ligament this year. Related Data Home Medications Medication Instructions Recorded Confirmed Glucosamine Chondroitin 2 tab PO DAILY 03/28/19 09/11/19 calcium carbonate-vitamin D3 2 tab PO DAILY 03/28/19 09/11/19 [Caltrate 600 plus D] cholecalciferol (vitamin D3) 2,000 unit PO DAILY 03/28/19 09/11/19 [Vitamin D3] Previous Rx's Medication Instructions Recorded losartan 25 mg tablet 25 mg PO DAILY #90 tab 09/22/19 cephalexin [Keflex] 500 mg PO TID 7 Days #21 cap 01/05/20 hydrocodone-acetaminophen [[place]] 1 tab PO Q8H PRN #7 tab 01/05/20 Allergies Allergy/AdvReac Type Severity Reaction Status Date / Time azithromycin [AZITHROMYCIN] Allergy Unknown Verified 01/05/20 12:31 Review of Systems <DEWAYNE Lal - Last Filed: 01/05/20 22:05> Review of Systems Narrative: General: Denies fever, chills, fatigue, malaise, sweats. Respiratory: Denies dyspnea, cough, wheezing, hemoptysis, sputum. Cardiovascular: Denies chest pain, palpitations, orthopnea, edema. Musculoskeletal: He HPI Skin: See HPI Patient History <DEWAYNE Lal - Last Filed: 01/05/20 22:05> Medical History Obstructive sleep apnea of adult Pyocele Work related injury (2011) Surgical History H/O thumb surgery History of inguinal hernia repair (1999) History of shoulder surgery (1977) Social History household members: spouse Smoking Status: Never smoker alcohol intake: current substance use type: does not use Smoking Status: Never smoker alcohol intake frequency: 0-2 drinks per day Substance Use Type: does not use Exam <DEWAYNE Lal - Last Filed: 01/05/20 22:05> Narrative Exam Narrative: General appearance: well developed, well nourished, in no acute distress. Head: normocephalic, atraumatic, no scalp lesions, non-tender. ENT: Hearing grossly intact. Airway patent. Neck/Thyroid: neck supple, full range of motion, no visible masses or meningeal signs. No JVD, non-tender without lymphadenopathy. Skin: Deep laceration involving left index finger volar aspect of PIP extends to the DIP with slow oozing bleeding. Heart: no clubbing, no cyanosis, no edema. S1 and S2 normal. RRR w/o murmurs, clicks, or bruits. Lungs: Breathing even and unlabored. No stridor. No accessory muscles used. Able to speak in full sentences. Chest: normal shape and expansion. Abdomen: non-obese, non-distended. Neurologic: alert and oriented. Cognitive exam, BREAST SURGEON and PNS grossly intact on informal exam. Psych: good eye contact, normal affect. Initial Vital Signs Initial Vital Signs: Vital Signs Pulse Rate 74 01/05/20 12:24 Respiratory Rate 14 01/05/20 12:24 Blood Pressure 113/58 L 01/05/20 12:24 Pulse Oximetry 100 01/05/20 12:24 Extrem Left upper extremity: hand Details: abnormal to inspection (deep laceration involving index finger PIP and extending to DIP), neuromotor exam abnormal Details: fingers 2-5 ABduction abnormal, neurosensory exam abnormal Details: median nerve sensory function abnormal (numbness to distal dorsal/volar and radial aspect of index finger distally), tendon exam abnormal, tenderness Location: of the 2nd digit, vascular exam Details: normal capillary refill, abnormal ROM of finger (able to flex PIP and DIP of index finger but anable to radial deviate), no swelling and laceration <Chano Dinero DO - Last Filed: 01/06/20 07:16> Initial Vital Signs Initial Vital Signs: Vital Signs Pulse Rate 74 01/05/20 12:24 Respiratory Rate 14 01/05/20 12:24 Blood Pressure 113/58 L 01/05/20 12:24 Pulse Oximetry 100 01/05/20 12:24 Procedures <PERLITA LalP - Last Filed: 01/05/20 22:05> Laceration Repair Laceration 1: Site: hand (index finger) Side (If applicable): left Size (cm): 4 Description: flap and irregular Depth: simple, single layer Local Anesthetic: lidocaine 1% and with bicarb Amount of anesthesia used (mL): 5 Pre-repair: wound explored and irrigated extensively Skin layer closed with: nylon Size (cm): 4-0 Number of sutures: 6 Technique: simple, interrupted Orthopedic Splinting/Casting Injury #1: Side: left Upper Extremity Injury Location: finger Upper Extremity Immobilizer: aluminum form splint Post splinting neuro exam: intact Post splinting vascular exam: intact Placed by: Nursing Scores <PERLITA LalP - Last Filed: 01/05/20 22:05> GCS [place] coma scale eye opening: Spontaneous Rashi coma scale verbal response: Orientated [place] coma scale motor response: Obey commands [place] coma scale total score: 15 Course <DEWAYNE Lal Last Filed: 01/05/20 22:05> Orders Ordered: Discontinued Medications Bacitracin (Bacitracin Oint 0.9 Gm Pckt) 1 applic TOP NOW ONE Stop: 01/05/20 14:48 Cefazolin Sodium/Dextrose (Ancef) 1 gm in 50 mls @ 200 mls/hr IV NOW ONE Stop: 01/05/20 14:06 Cefazolin Sodium/Dextrose (Ancef) 2 gm in 100 mls @ 200 mls/hr IV NOW ONE Stop: 01/05/20 14:31 Last Admin: 01/05/20 14:10 Dose: 200 mls/hr Documented by: SCANAPO Lidocaine/Sodium Bicarbonate (Lido 1%/Sod Bicarb 8.4% (10ml) 10 Ml Syringe) 10 ml INJ NOW ONE Stop: 01/05/20 13:12 Last Admin: 01/05/20 13:14 Dose: 10 ml Documented by: DONI Consultations Consultation #1: Paged Dr. Selby to consult Time: 13:35 Consultation #2: Received info that Dr. Selby in OR till 1450 Time: 14:32 Consultation #3: Dr. Selby will be in ER to assess the patient at bedside. Time: 14:40 Vital Signs Vital signs: Vital Signs - 8 hr 01/05/20 14:00 01/05/20 14:30 01/05/20 15:00 Pulse Rate 66 63 66 Pulse Oximetry 99 99 99 <Chano Dinero DO - Last Filed: 01/06/20 07:16> Orders Ordered: Discontinued Medications Bacitracin (Bacitracin Oint 0.9 Gm Pckt) 1 applic TOP NOW ONE Stop: 01/05/20 14:48 Cefazolin Sodium/Dextrose (Ancef) 1 gm in 50 mls @ 200 mls/hr IV NOW ONE Stop: 01/05/20 14:06 Cefazolin Sodium/Dextrose (Ancef) 2 gm in 100 mls @ 200 mls/hr IV NOW ONE Stop: 01/05/20 14:31 Last Admin: 01/05/20 14:10 Dose: 200 mls/hr Documented by: SCANAPO Lidocaine/Sodium Bicarbonate (Lido 1%/Sod Bicarb 8.4% (10ml) 10 Ml Syringe) 10 ml INJ NOW ONE Stop: 01/05/20 13:12 Last Admin: 01/05/20 13:14 Dose: 10 ml Documented by: DONI Vital Signs Vital signs: Vital Signs - 8 hr 01/05/20 14:00 01/05/20 14:30 01/05/20 15:00 Pulse Rate 66 63 66 Pulse Oximetry 99 99 99 MDM - Wound/Laceration <DEWAYNE Lal - Last Filed: 01/05/20 22:05> Differential Diagnosis Differential diagnosis: Likely laceration and other (Open fracture,) Medical Records Attestation: I reviewed the patient's medical records. Imaging Data XR-Finger LT: Radiologist's Impression: [address] [id number] ReportSigned Patient: Jesus Buckner PMR#: [id number]: 5Acct:[id number]/Sex: 64 / MDate of Service: 01/05/20Loc: EDAccession Number: [id number] Procedure: XR finger LT min 2V Ordering Provider: hCano Dinero D.O. PROCEDURE: XR FINGER LT MIN 2V INDICATIONS: laceration from circular saw digit 2 TECHNIQUE: AP hand, 2 views of the 2nd digit acquired. COMPARISON: None. FINDINGS: Bones: There is a small focus of cortical disruption along the radial aspect of the 2nd middle phalanx suggestive of a small nondisplaced fracture. No displaced fractures or dislocations. Soft tissues: There is soft tissue swelling of the 2nd digit with a soft tissue laceration along the radial aspect. No definite radiopaque foreign bodies although evaluation is limited by external dressing. IMPRESSION: 1. Soft tissue laceration of the 2nd digit with a small focus of cortical disruption along the radial aspect of the 2nd middle phalanx. Dictated by: Sebastián Lopez M.D. on 01/05/2020 at 13:05 Approved by: Sebastián Lopez M.D. on 01/05/2020 at 13:22 [facility] Narrative Medical decision making narrative: This is a 64-year-old male who presents to ED with non dominant hand left index finger deep laceration from a table saw on volar aspect of index finger in PIP in radial aspect wraps around to dorsal aspect and extends to DID of dorsal finger. Numbness to dorsal and radial aspect in index finger on laceration area and distally. Vascularly intact with brisk cap refill. Patient is able to flex the IP and PIP in active range motion. Patient is unable to radially deviate affected finger. Tetanus immunization is up-to-date. X-ray of affected finger indicates soft tissue laceration of the 2nd middle phalanx suggestive of small nondisplaced fracture with of definite radial pack foreign body. Deep laceration was irrigated well with hibiclens and NS. No obvious body appreciated. Laceration was repaired with sutures after digital block and please see procedure note. Patient medicated with IV to g Ancef for open fracture/deep laceration near the joint. Dr. Selby kindly assessed the patient at the bedside in ER and recommend wound care and splint affected finger on an aluminum foam finger splint and to follow-up with Dr. Perez and possible digital nerve involvement. Patient discharged to home with Keflex for 5 day course and we discussed home wound care, wound recheck, and suture removal, return precautions with patient. Patient discharged to home with small dose of [place] for severe pain along narcotic medication precautions and advised to take [id number] Tylenol and or Motrin as needed for with low to moderate pain. Patient verbalized understanding and in agreement with treatment plan. Discharge Plan Departure Patient Disposition: Home Clinical Impression: Finger laceration Qualifiers: Encounter type: initial encounter Finger: index finger Damage to nail status: without damage Foreign body presence: without foreign body Laterality: left Qualified Code(s): S61.211A - Laceration without foreign body of left index finger without damage to nail, initial encounter Open fracture of finger Qualifiers: Encounter type: initial encounter Finger: index finger Phalanx: middle Fracture alignment: nondisplaced Laterality: left Qualified Code(s): S62.651B - Nondisplaced fracture of middle phalanx of left index finger, initial encounter for open fracture Instructions: DI for Laceration Repair, DI for Finger Fracture Activity Restrictions/Additional Instructions: You have been diagnosed with [possibly nondisplaced open finger fracture on left index finger non dominant hand likely involving digital nerve. Laceration has been repaired with 6 sutures. Affected finger was placed on finger splint]. What to do: *Take your medications as directed. You can take [id number] Tylenol and or Motrin as needed for discomfort. You can take [place] for severe pain. This is in narcotic pain medication so please take precaution like drinking alcohol, driving, or operating heavy equipments. Also it can cause constipation so please take precautions. Please do not get your wound soaked in the water until suture removal. Keep your dressing intact for next 24 hrs. After then, you could remove your dressing, wash with soap and water. Pat dry with clean paper towel and dress it with antibiotic ointment. You can change dressing as needed and daily. Please monitor for signs and symptoms for infection such as increasing redness, swelling, warmth, pain, fever, purulent discharge. If this occurs, please return to ED or follow up with your primary care physician since your wound may be gotten infected. Please follow up with your primary care provider in 2-3 days for recheck wound. Your suture should be removed [7-10 ] days. This can be done by your primary provider, walk-in clinic or here in ED. Please keep your wound clean, dry and intact all times. *Follow up with your primary care provider/Dr. Perez in 2-3 days, call for an appointment. Let them know you were seen in the ED and that we asked you to be seen in follow up. *Return to ED if you have any new, worsening, or concerning symptoms, such as signs and symptoms for infection, chest pain, breathing difficulty, unable to tolerate fluids, dizziness, any acute concerns]. Prescriptions: New cephalexin [Keflex] 500 mg capsule 500 mg PO TID 7 Days Qty: 21 RF: 0 hydrocodone-acetaminophen [[place]] 5-325 mg tablet 1 tab PO Q8H PRN (Reason: pain) Qty: 7 RF: 0 No Action losartan 25 mg tablet 25 mg PO DAILY Qty: 90 RF: 3 cholecalciferol (vitamin D3) [Vitamin D3] 50 mcg (2,000 unit) Capsule 2,000 unit PO DAILY RF: 0 Caltrate 600 plus D 600 mg (1,500 mg)-800 unit Tablet,Chewable 2 tab PO DAILY RF: 0 Glucosamine Chondroitin 2 tab PO DAILY RF: 0 Referrals: Pablo Salmeron MD [Primary Care Provider] - Deven Perez MD [Physician] - <Chano Dinero DO - Last Filed: 01/06/20 07:16> [facility] Att[facility]: Dr Dinero Co-Sign Statement: I was available for consultation during this patient's emergency department visit. This chart is signed by myself for administrative purposes only. I did not have direct contact with this patient during this visit. They were seen independently by the [facility].
[2020-01-05] MEDS: LIDO 1%/SOD BICARB 8.4% (10ML) 10 ML SYRINGE INJ (13:14)
[2020-01-05] MEDS: CEFAZOLIN 2 GM/100 ML FROZ.PIGGY IV (14:10)
--- NOTE | 2020-01-12 17:12 | PC.NURSE ---
Late entry: Ancef IV infused 1440 hours.
== END 2020-01-05 15:50 | disposition home or self-care (01) ==
PROVIDERS: Emergency Provider Nurse Practitioner Family; Family Provider Student in an Organized Health Care Education/Training Program; PCP Student in an Organized Health Care Education/Training Program
DX: S62.651B Nondisplaced fracture of middle phalanx of left index finger, initial encounter for open fracture (principal); W29.3XXA Contact with powered garden and outdoor hand tools and machinery, initial encounter
CPT/HCPCS: 12002; 36415; 73140; 96365; 99283; 99284; STOP; J0690

== ENCOUNTER → 2021-01-10 09:52 | Outpatient (CLI) | payer MEDICARE, OTHER, SELFPAY ==
[2021-01-10 12:46] LABS: Prostate Specific Antigen 2.51 ng/mL (0.10-4.00)
== END ==
PROVIDERS: Family Provider Student in an Organized Health Care Education/Training Program; PCP Student in an Organized Health Care Education/Training Program; Referring Provider Urology; Visit Provider Urology
DX: Z12.5 Encounter for screening for malignant neoplasm of prostate (principal)
CPT/HCPCS: 36415; 84153; G0103

== ENCOUNTER → 2021-01-29 16:39 | Outpatient (ROUT) | payer MEDICARE, OTHER, SELFPAY | PROVIDERS: Family Provider Student in an Organized Health Care Education/Training Program; PCP Student in an Organized Health Care Education/Training Program; Visit Provider Physician Assistant | DX: S61.419A Laceration without foreign body of unspecified hand, initial encounter (principal) | CPT/HCPCS: 87070; 87075; 87077; 87147; 87186; 87205 ==

== ENCOUNTER → 2021-05-19 15:18 | Outpatient (CLI) | payer MEDICARE, OTHER, SELFPAY ==
[2021-05-19 15:55] LABS: BUN Creatinine Ratio 31.1 (6-22); Blood Urea Nitrogen 23 mg/dL (9-20); Calcium 8.9 mg/dL (8.4-10.2); Carbon Dioxide 27 mmol/L (22-32); Chloride 104 mmol/L (98-107); Estimated Glomerular Filt Rate > 60.0 mL/min (>60); Glucose 93 mg/dL (80-110); HEMOLYSIS 26 (0-50); Potassium 4.3 mmol/L (3.4-5.1); Sodium 139 mmol/L (137-145)
== END ==
PROVIDERS: Family Provider Student in an Organized Health Care Education/Training Program; PCP Student in an Organized Health Care Education/Training Program; Referring Provider Student in an Organized Health Care Education/Training Program; Visit Provider Student in an Organized Health Care Education/Training Program
DX: I10 Essential (primary) hypertension (principal)
CPT/HCPCS: 36415; 80048

== ENCOUNTER 2021-08-29 06:27 | Emergency (ER) | payer MEDICARE, OTHER, SELFPAY ==
[2021-08-29] VITALS (14 sets, daily range): BP systolic 130–172; BP diastolic 75–94; PULSE 49–66; RESP 12–42; TEMP 36.4; O2SAT 94–97; BMI 27.3
--- NOTE | 2021-08-29 06:54 | DI.RAD.S_ITS ---
PROCEDURE: XR CHEST 1V INDICATIONS: chest pain TECHNIQUE: One view of the chest was acquired. COMPARISON: [facility], CR, XR CHEST 1V, 03/28/2019, 17:33. FINDINGS: Surgical changes and devices: Metallic screw is seen projecting over the bilateral scapulae. Lungs and pleura: Lungs are clear. No pleural effusions or pneumothorax. Mediastinum: Mediastinal contours appear normal. Heart size is normal. Bones and chest wall: No suspicious bony lesions. Overlying soft tissues appear unremarkable. IMPRESSION: No acute cardiopulmonary abnormality. Dictated by: Leon Borrero M.D. on 08/29/2021 at 7:47 Approved by: Leon Borrero M.D. on 08/29/2021 at 7:48
--- NOTE | 2021-08-29 06:55 | ED_ITS ---
HPI - Chest Pain General Chief Complaint: Chest Pain Stated Complaint: possible heart attack Time Seen by Provider: 08/29/21 06:40 History of Present Illness HPI narrative: Patient is a 66-year-old male history of hypertension presenting today with chest heaviness and diaphoresis. He says he woke up this morning diaphoretic with heaviness in the center of his chest. It was nonradiating. He denies any nausea or shortness of breath. He had out of bed walked down the hallway and felt heaviness and sweating this get worse at which point he decided to come to the emergency department. He says over last 2-3 years he has had a couple episodes of this. He finally told his a retired are and made him come to the emergency department. He has no known coronary artery disease. He has family history including his mother and grandmother over the age of 60 with history of heart attacks. Patient states symptoms have completely resolved now that he is in the emergency department. Lasted for about 30 minutes. Related Data Home Medications Medication Instructions Recorded Confirmed Glucosamine Chondroitin 2 tab PO DAILY 03/28/19 05/19/21 calcium carbonate 600 mg-vitamin 2 tab PO DAILY 03/28/19 05/19/21 D3 20 mcg (800 unit) chewable tablet (Caltrate 600 plus D) cholecalciferol (vitamin D3) 50 2,000 unit PO DAILY 03/28/19 05/19/21 mcg (2,000 unit) capsule (Vitamin D3) Previous Rx's Medication Instructions Recorded losartan 25 mg tablet 25 mg PO DAILY #90 tabs 05/19/21 Allergies Allergy/AdvReac Type Severity Reaction Status Date / Time oxycodone [From OxyContin] Allergy Mild sweating, Verified 05/19/21 09:22 nausea azithromycin [AZITHROMYCIN] Allergy Unknown Verified 05/19/21 09:22 Review of Systems Review of Systems Narrative: GENERAL: Denies chills, fatigue, malaise, fever, sweats, travel HEENT: Denies sinus pain, ear pain, sore throat, difficulty swallowing, neck pain RESPIRATORY: Denies dyspnea, cough, wheezing, hemoptysis, sputum. CARDIOVASCULAR: See HPI GASTROINTESTINAL: Denies nausea, vomiting, abdominal pain, diarrhea, constipation, melena. : Denies dysuria, frequency, incontinence, hematuria, urinary retention, flank pain. MUSCULOSKELETAL: Denies weakness, joint pain, or bony pain SKIN: No rash, no erythema, no pruritus NEUROLOGIC: Denies weakness, dizziness, headache, numbness, change in speech, confusion PSYCHIATRIC: No concerning psychosocial issues. 12 point review of systems is negative except for those stated above and HPI Patient History Medical History Obstructive sleep apnea of adult Pyocele Work related injury (2011) Surgical History H/O thumb surgery History of inguinal hernia repair (1999) History of shoulder surgery (1977) Social History household members: spouse Smoking Status: Never smoker alcohol intake: current substance use type: does not use Smoking Status: Never smoker alcohol intake frequency: 0-2 drinks per day Substance Use Type: does not use Exam Initial Vital Signs Initial Vital Signs: Vital Signs Temperature 97.5 F L 08/29/21 06:35 Pulse Rate 66 08/29/21 06:35 Respiratory Rate 18 08/29/21 06:35 Blood Pressure 172/84 H 08/29/21 06:35 Pulse Oximetry 97 08/29/21 06:35 Oxygen Delivery Method 08/29/21 06:35 GENERAL: Alert year old male and in no acute distress. HEENT: Head atraumatic,EOMI, pupils reactive, face symmetric, moist mucous membranes CARDIOVASCULAR: Regular rate and rhythm without murmurs, rubs or gallops. RESPIRATORY: Breath sounds equal bilaterally, no wheezes rales or rhonchi. ABDOMEN: Soft, nontender. Normoactive bowel sounds all 4 quadrants. No guarding or rebound. EXTREMITIES: Normal range of motion, no clubbing or edema. Neurovascularly in tact NEUROLOGICAL: Alert and oriented x4.Normal gait and speech. SKIN: Warm, dry, no laceration, no petechiae, no rashes or lesions. Course Orders Ordered: ED Orders 08/29/21 10:27 EC echo doppler complete Stat 08/29/21 11:18 COVID19 -Nasal RAPID/Pre-Proc Stat Discontinued Medications Aspirin (Aspirin 81 Mg Chew Tab) 324 mg PO NOW ONE Stop: 08/29/21 06:54 Last Admin: 08/29/21 07:04 Dose: 324 mg Documented By: DKB Losartan Potassium (Losartan 25 Mg Tablet) 25 mg PO NOW ONE Stop: 08/29/21 13:35 Last Admin: 08/29/21 14:22 Dose: 25 mg Documented By: ARIN Vital Signs Vital signs: Vital Signs - 8 hr 08/29/21 11:30 08/29/21 11:30 08/29/21 13:30 Pulse Rate 54 L 54 L Respiratory Rate 15 42 H Blood Pressure 156/90 H Pulse Oximetry 96 97 08/29/21 14:00 08/29/21 14:18 08/29/21 14:18 Pulse Rate 52 L 57 L Respiratory Rate 31 H 25 H Blood Pressure 161/94 H Pulse Oximetry 95 96 MDM - Chest Pain Lab Data Result diagrams: 08/29/21 06:45 08/29/21 06:45 Labs: Lab Results 08/29/21 08/29/21 08/29/21 Range/Units 06:45 06:45 06:45 WBC 4.2 L (4.5-11.0) X10^3/uL RBC 4.86 (4.5-5.9) X10^6/uL Hgb 15.6 (13.5-17.5) g/dL Hct 43.6 (41-53) % MCV 89.6 (80-100) fL MCH 32.1 (26-34) PG MCHC 35.9 (30-36) % RDW 13.5 (11.6-14.8) % Plt Count 160 (150-400) X10^3/uL Neut % (Auto) 57.6 (50-75) % Lymph % (Auto) 28.6 (25-40) % Beaver % (Auto) 8.7 (3-14) % Eos % (Auto) 3.9 (2-4) % Baso % (Auto) 1.2 (0-2) % Neut # (Auto) 2400 (5998-8112) /uL Lymph # (Auto) 1200 (2181-5745) /uL Beaver # (Auto) 400 (0-900) /uL Eos # (Auto) 200 (0-450) /uL Baso # (Auto) 0 (0-100) /uL PT 11.5 (10.1-12.7) SECONDS INR 1.0 (0.9-1.3) APTT 26 L (26.4-36.2) SECONDS Sodium 137 (137-145) mmol/L Potassium 3.9 (3.4-5.1) mmol/L Chloride 106 (98-107) mmol/L Carbon Dioxide 26 (22-32) mmol/L BUN 26 H (9-20) mg/dL Creatinine 0.74 (0.66-1.25) mg/dL Estimated GFR > 60 (>60) mL/min BUN/Creatinine Ratio 35.1 H (6-22) Glucose 104 (80-110) mg/dL Calcium 8.5 (8.4-10.2) mg/dL Total Bilirubin 1.0 (0.2-1.3) mg/dL AST 28 (17-59) IU/L ALT 17 (<50) IU/L Alkaline Phosphatase 74 (38-126) U/L Total Creatine Kinase 140 (55-170) U/L CK-MB (CK-2) 3.72 H (<2.37) ng/mL CK-MB (CK-2) Rel Index 2.7 (1.5-5.0) % Troponin I < 0.012 (0.01-0.034) ng/mL Total Protein 6.5 (6.3-8.2) g/dL Albumin 4.1 (3.5-5.0) g/dL Globulin 2.4 (1.7-4.1) g/dL Albumin/Globulin Ratio 1.7 (1.0-2.8) Lipase 149 (23-300) U/L SARS-CoV-2 (PCR) (Negative) 08/29/21 08/29/21 Range/Units 08:47 11:18 WBC (4.5-11.0) X10^3/uL RBC (4.5-5.9) X10^6/uL Hgb (13.5-17.5) g/dL Hct (41-53) % MCV (80-100) fL MCH (26-34) PG MCHC (30-36) % RDW (11.6-14.8) % Plt Count (150-400) X10^3/uL Neut % (Auto) (50-75) % Lymph % (Auto) (25-40) % Beaver % (Auto) (3-14) % Eos % (Auto) (2-4) % Baso % (Auto) (0-2) % Neut # (Auto) (9133-9710) /uL Lymph # (Auto) (7745-6551) /uL Beaver # (Auto) (0-900) /uL Eos # (Auto) (0-450) /uL Baso # (Auto) (0-100) /uL PT (10.1-12.7) SECONDS INR (0.9-1.3) APTT (26.4-36.2) SECONDS Sodium (137-145) mmol/L Potassium (3.4-5.1) mmol/L Chloride (98-107) mmol/L Carbon Dioxide (22-32) mmol/L BUN (9-20) mg/dL Creatinine (0.66-1.25) mg/dL Estimated GFR (>60) mL/min BUN/Creatinine Ratio (6-22) Glucose (80-110) mg/dL Calcium (8.4-10.2) mg/dL Total Bilirubin (0.2-1.3) mg/dL AST (17-59) IU/L ALT (<50) IU/L Alkaline Phosphatase (38-126) U/L Total Creatine Kinase (55-170) U/L CK-MB (CK-2) (<2.37) ng/mL CK-MB (CK-2) Rel Index (1.5-5.0) % Troponin I < 0.012 (0.01-0.034) ng/mL Total Protein (6.3-8.2) g/dL Albumin (3.5-5.0) g/dL Globulin (1.7-4.1) g/dL Albumin/Globulin Ratio (1.0-2.8) Lipase (23-300) U/L SARS-CoV-2 (PCR) Negative (Negative) Imaging Data ECHO: Radiologist's Impression: ?Maira Buckner MR#: [id number] : 1955 Acct:[id number] Age/Sex: 66 / M Date of Service: 08/29/21 Loc: ED Accession Number: [id number] ?? Procedure: EC echo doppler complete Ordering Provider: Thalia Hudson D.O. ? [facility]? +---------+ : ? :? [address] ? : ? : : ? :? [place], [place] ? : ? : : ? :? [id number] ? : ? : : ? : ? Phone: [phone]? : ? : [phone]? [phone]? +---------+ ? Echocardiogram Report + + :Name: MAIRA BUCKNER? Study Date: 08/29/2021 ? Height: 69 in? : :Hospital ? ReadingLocation: ? Weight: 185 lb : : ? Gender: Male ? BSA: 2.0 m2? ? : :: 1955? Age: 66 yrs? BP: 147/79 mmHg: :Reason For Study: Chest pain ? : :Ordering Physician: TRISTAN, ? : :THALIA ? Performed By: Axel Kirkpatrick ? : :Referring: THALIA HUDSON ? : + + Interpretation Summary The left ventricle is normal in size and wall thickness. Left ventricular systolic function is normal. The ejection fraction is estimated to be 55-60%. There are no focal wall motion abnormalities. Diastolic parameters suggest probable normal left ventricular diastolic function and normal filling pressures. ? The right ventricle is normal in size and function. The right ventricular systolic pressure is estimated to be at least 32 mmHg based on an estimated right atrial pressure of 8 mm Hg. ? Both atria are normal in size. ? There is no significant valvular heart disease. ? The aortic root is normal size. ? Procedure: ? A two-dimensional transthoracic echocardiogram with color flow and Doppler was performed. The study quality was technically adequate. There is no prior echocardiogram noted for this patient. The patient was in normal sinus rhythm during the exam. Left Ventricle: ? The left ventricle is normal in size and wall thickness. Left ventricular systolic function is normal. The ejection fraction is estimated to be 55-60%. There are no focal wall motion abnormalities. Diastolic parameters suggest probable normal left ventricular diastolic function and normal filling pressures. Right Ventricle: ? The right ventricle is normal in size and function. Atria: ? Both atria are normal in size. The interatrial septum grossly appears intact with no obvious evidence for an atrial septal defect. Mitral Valve: ? The mitral valve is normal in structure and function. There is trace mitral regurgitation. Aortic Valve: ? The aortic valve is normal in structure and function. No aortic regurgitation is present. Tricuspid Valve: ? The tricuspid valve is normal in structure and function. There is trace tricuspid regurgitation. The right ventricular systolic pressure is estimated to be at least 32 mmHg based on an estimated right atrial pressure of 8 mm Hg. Pulmonic Valve: ? The pulmonic valve is normal in structure and function. There is mild pulmonic regurgitation. There is no significant valvular heart disease. Great Vessels: ? The aortic root is normal size. The dimensions of the ascending aorta are normal. The IVC is dilated (diameter is greater than 2.1 cm) yet it collapses greater than 50% with a sniff. This suggests a right atrial pressure of 8 mm Hg. Pericardium/ Pleura ? There is no pericardial effusion. There is no pleural effusion. ? MMode/2D Measurements & Calculations LVIDd: 5.5 cm ? LVOT diam: 2.3 cm LVIDs: 3.7 cm ? Ao root diam: 3.1 cm FS: 32.7 %? asc Aorta Diam: 3.1 cm IVSd: 0.80 cm LVPWd: 0.90 cm LV rosales. diameter/BSA (cm/m^2): 2.8 LV sys. diameter/BSA (cm/m^2): 1.9 ? LA dimension: 3.7 cm? RA long axis: 5.9 cm LA A2 area: 18.6 cm2? IVC diam: 2.5 cm LA A4 area: 18.6 cm2 LA length (vol): 5.5 cm LA vol: 53.7 ml LA vol index: 26.9 ml/m2 ? TAPSE_phl: 2.5 cm ? Doppler Measurements & Calculations Ao V2 max: 92.6 cm/sec ? LVOT Max Judson: 88.1 cm/sec Ao V2 mean: 68.9 cm/sec? LV V1 max P.1 mmHg Ao max P.0 mmHg? LV V1 VTI: 21.8 cm Ao mean P.0 mmHg ? ROXANNA(I,D): 4.0 cm2 Ao V2 VTI: 22.5 cm ? ROXANNA(V,D): 4.0 cm2 ? sev ratio: 0.97 ? ROXANNA indexed to BSA (cm^2/m^2): 2.0 ? MV E max judson: 66.8 cm/sec? TR max judson: 246.0 cm/sec MV A max judson: 70.3 cm/sec? TR max P.2 mmHg MV E/A: 0.95 Med Peak E' Judson: 8.8 cm/sec E/E' med: 7.6 Lat Peak E' Judson: 10.3 cm/sec E/E' lat: 6.5 E/e' average: 7.0 MV dec time: 0.32 sec ? SV(LVOT): 90.6 ml? AV VR_phl: 0.95 ? ROXANNA(VTI)/BSA_phl: 2.0 ? MV P1/2t-pr_phl: 92.0 msec ? Reading Physician:01:45 PM Chest x-ray: Radiologist's Impression: nt: Maira Buckner Emiliano MR#: [id number] : 1955 Acct:[id number] Age/Sex: 66 / M Date of Service: 08/29/21 Loc: ED Accession Number: [id number] ?? Procedure: XR chest 1V Ordering Provider: Thalia Hudson D.O. PROCEDURE:? XR CHEST 1V ? INDICATIONS:? chest pain ? TECHNIQUE:? One view of the chest was acquired.? ? COMPARISON:? [facility], , XR CHEST 1V, 03/28/2019, 17:33. ? FINDINGS:? ? Surgical changes and devices:? Metallic screw is seen projecting over the bilateral scapulae.? ? Lungs and pleura:? Lungs are clear.? No pleural effusions or pneumothorax.? ? Mediastinum:? Mediastinal contours appear normal.? Heart size is normal.? ? Bones and chest wall:? No suspicious bony lesions.? Overlying soft tissues appear unremarkable.? ? IMPRESSION:? No acute cardiopulmonary abnormality. ? ? Dictated by: Leon Borrero M.D. on 08/29/2021 at 7:47? ECG Data Interpretation: Normal sinus rhythm 59 p.r. interval 150 QRS [address] changes T-wave inversion noted in lead 3 only no priors to compare Normal sinus rhythm rate 49 [place] interval [address] changes persistent T-wave inversion in lead 3 only no changes from prior MDM Narrative Medical decision making narrative: Patient's symptoms certainly are concerning for cardiac a. He has 2- troponins 2 normal EKGs. Unfortunately after discussing case with hospitalist we are unable to get in patient stress test for over 1 week. Patient has been completely asymptomatic since being in the emergency department. Echocardiogram has been ordered and does not show any abnormality. 1245-Dr. Mattson cardiology has been updated on current situation and patient's specific symptoms. At this time she of grease he does need a stress test however does not need to wait in the hospital in order to get 1. Recommends close outpatient follow-up and outpatient stress test 1400 Dr. Chambers patient's PCP has been updated patient's symptoms and test results and is happy to order a stress test currently has a slot available this week. Patient been ambulatory to the restroom and remains asymptomatic. I have instructed him to return to the emergency department by ambulance had any time if he should have any symptoms at all Discharge Plan Departure Patient Disposition: Home Clinical Impression: Atypical chest pain Instructions: DI for Atypical Chest Pain Activity Restrictions/Additional Instructions: *You have been diagnosed with atypical chest pain *What to do: At this time you do need a stress test. I discussed with Dr. Matias who actually has a slot available for you this week. Please call his office to determine specifics. He may call [phone] if you should have any recurrence of any sort of chest discomfort *Continue to take medications as directed Aspirin 81 mg daily *Follow up with your primary care provider in 2-3 days or call [phone] *Return to ER if you should have increasing chest heaviness, sweatiness, shortness of breath, nausea, any chest discomfort or any new, worsening or concerning symptoms Prescriptions: No Action losartan 25 mg tablet 25 mg PO DAILY Qty: 90 3RF cholecalciferol (vitamin D3) [Vitamin D3] 50 mcg (2,000 unit) Capsule 2,000 unit PO DAILY Caltrate 600 plus D 600 mg (1,500 mg)-800 unit Tablet,Chewable 2 tab PO DAILY Glucosamine Chondroitin 2 tab PO DAILY Referrals: Pablo Salmeron MD [Primary Care Provider] - Visit Report Forms: Patient Portal/API
[2021-08-29] MEDS: ASPIRIN 81 MG CHEW TAB 324 MG PO (07:04)
[2021-08-29 07:24] LABS: Prothrombin Time 11.5 SECONDS (10.1-12.7)
[2021-08-29 07:27] LABS: PTT Partial Thromboplastin Tim 26 SECONDS (26.4-36.2)
[2021-08-29 07:30] LABS: Add Manual Diff / Slide Review NO; Basophils Absolute Auto 0 /uL (0-100); Basophils Percent Auto 1.2 % (0-2); Eosinophils Absolute Auto 200 /uL (0-450); Eosinophils Percent Auto 3.9 % (2-4); Hematocrit 43.6 % (41-53); Hemoglobin 15.6 g/dL (13.5-17.5); Lymphocytes Absolute Auto 1200 /uL (1100-4500); Lymphocytes Percent Auto 28.6 % (25-40); Mean Corpuscular HGB Conc 35.9 % (30-36); Mean Corpuscular Hemoglobin 32.1 PG (26-34); Mean Corpuscular Volume 89.6 fL (80-100); Monocytes Absolute Auto 400 /uL (0-900); Monocytes Percent Auto 8.7 % (3-14); Neutrophils Absolute Auto 2400 /uL (1500-7000); Neutrophils Percent Auto 57.6 % (50-75); Platelet Count 160 X10^3/uL (150-400); Red Blood Cell Count 4.86 X10^6/uL (4.5-5.9); Red Cell Distribution Width 13.5 % (11.6-14.8); White Blood Cell Count 4.2 X10^3/uL (4.5-11.0)
[2021-08-29 07:54] LABS: Alanine Aminotransferase 17 IU/L (<50); Albumin 4.1 g/dL (3.5-5.0); Albumin Globulin Ratio 1.7 (1.0-2.8); Alkaline Phosphatase 74 U/L (38-126); Aspartate Aminotransferase 28 IU/L (17-59); BUN Creatinine Ratio 35.1 (6-22); Blood Urea Nitrogen 26 mg/dL (9-20); Calcium 8.5 mg/dL (8.4-10.2); Carbon Dioxide 26 mmol/L (22-32); Chloride 106 mmol/L (98-107); Creatine Kinase 140 U/L (55-170); Estimated Glomerular Filt Rate > 60 mL/min (>60); Globulin 2.4 g/dL (1.7-4.1); Glucose 104 mg/dL (80-110); HEMOLYSIS < 15 (0-50); Lipase 149 U/L (23-300); Potassium 3.9 mmol/L (3.4-5.1); Sodium 137 mmol/L (137-145); Total Protein 6.5 g/dL (6.3-8.2)
[2021-08-29 08:05] LABS: Troponin I < 0.012 ng/mL (0.01-0.034)
[2021-08-29 08:09] LABS: CKMB % Relative Index 2.7 % (1.5-5.0); Creatine Kinase MB 3.72 ng/mL (<2.37)
[2021-08-29 09:27] LABS: Troponin I < 0.012 ng/mL (0.01-0.034)
--- NOTE | 2021-08-29 10:27 | DI.ECHO.S_ITS ---
[facility] +---------+ : : [address] : : : : [id number] : : : : Phone: [phone] : [phone] +---------+ Echocardiogram Report + + :Name: MAIRA POOLE Study Date: 08/29/2021 Height: 69 in : :[facility] ReadingLocation: Weight: 185 lb : : Gender: Male BSA: 2.0 m2 : :: 1955 Age: 66 yrs BP: 147/79 mmHg: :Reason For Study: Chest pain : :Ordering Physician: TRISTAN, : :KRISTINA Performed By: Axel Kirkpatrick : :Referring: KRISTINA HUDSON : + + Interpretation Summary The left ventricle is normal in size and wall thickness. Left ventricular systolic function is normal. The ejection fraction is estimated to be 55-60%. There are no focal wall motion abnormalities. Diastolic parameters suggest probable normal left ventricular diastolic function and normal filling pressures. The right ventricle is normal in size and function. The right ventricular systolic pressure is estimated to be at least 32 mmHg based on an estimated right atrial pressure of 8 mm Hg. Both atria are normal in size. There is no significant valvular heart disease. The aortic root is normal size. Procedure: A two-dimensional transthoracic echocardiogram with color flow and Doppler was performed. The study quality was technically adequate. There is no prior echocardiogram noted for this patient. The patient was in normal sinus rhythm during the exam. Left Ventricle: The left ventricle is normal in size and wall thickness. Left ventricular systolic function is normal. The ejection fraction is estimated to be 55-60%. There are no focal wall motion abnormalities. Diastolic parameters suggest probable normal left ventricular diastolic function and normal filling pressures. Right Ventricle: The right ventricle is normal in size and function. Atria: Both atria are normal in size. The interatrial septum grossly appears intact with no obvious evidence for an atrial septal defect. Mitral Valve: The mitral valve is normal in structure and function. There is trace mitral regurgitation. Aortic Valve: The aortic valve is normal in structure and function. No aortic regurgitation is present. Tricuspid Valve: The tricuspid valve is normal in structure and function. There is trace tricuspid regurgitation. The right ventricular systolic pressure is estimated to be at least 32 mmHg based on an estimated right atrial pressure of 8 mm Hg. Pulmonic Valve: The pulmonic valve is normal in structure and function. There is mild pulmonic regurgitation. There is no significant valvular heart disease. Great Vessels: The aortic root is normal size. The dimensions of the ascending aorta are normal. The IVC is dilated (diameter is greater than 2.1 cm) yet it collapses greater than 50% with a sniff. This suggests a right atrial pressure of 8 mm Hg. Pericardium/ Pleura There is no pericardial effusion. There is no pleural effusion. MMode/2D Measurements & Calculations LVIDd: 5.5 cm LVOT diam: 2.3 cm LVIDs: 3.7 cm Ao root diam: 3.1 cm FS: 32.7 % asc Aorta Diam: 3.1 cm IVSd: 0.80 cm LVPWd: 0.90 cm LV rosales. diameter/BSA (cm/m^2): 2.8 LV sys. diameter/BSA (cm/m^2): 1.9 LA dimension: 3.7 cm RA long axis: 5.9 cm LA A2 area: 18.6 cm2 IVC diam: 2.5 cm LA A4 area: 18.6 cm2 LA length (vol): 5.5 cm LA vol: 53.7 ml LA vol index: 26.9 ml/m2 TAPSE_phl: 2.5 cm Doppler Measurements & Calculations Ao V2 max: 92.6 cm/sec LVOT Max Judson: 88.1 cm/sec Ao V2 mean: 68.9 cm/sec LV V1 max P.1 mmHg Ao max P.0 mmHg LV V1 VTI: 21.8 cm Ao mean P.0 mmHg ROXANNA(I,D): 4.0 cm2 Ao V2 VTI: 22.5 cm ROXANNA(V,D): 4.0 cm2 sev ratio: 0.97 ROXANNA indexed to BSA (cm^2/m^2): 2.0 MV E max judson: 66.8 cm/sec TR max judson: 246.0 cm/sec MV A max judson: 70.3 cm/sec TR max P.2 mmHg MV E/A: 0.95 Med Peak E' Judson: 8.8 cm/sec E/E' med: 7.6 Lat Peak E' Judson: 10.3 cm/sec E/E' lat: 6.5 E/e' average: 7.0 MV dec time: 0.32 sec SV(LVOT): 90.6 ml AV VR_phl: 0.95 ROXANNA(VTI)/BSA_phl: 2.0 MV P1/2t-pr_phl: 92.0 msec Reading Physician:01:45 PM
[2021-08-29 12:00] LABS: COVID19 -Nasal RAPID Negative (Negative)
[2021-08-29] MEDS: LOSARTAN 25 MG TABLET PO (14:22)
== END 2021-08-29 14:29 | disposition home or self-care (01) ==
PROVIDERS: Emergency Provider Emergency Medicine; Family Provider Student in an Organized Health Care Education/Training Program; PCP Student in an Organized Health Care Education/Training Program
DX: R07.89 Other chest pain (principal); Z20.822 Contact with and (suspected) exposure to COVID-19
CPT/HCPCS: 36415; 71045; 80053; 82550; 82553; 83690; 84484; 85025; 85610; 85730; 87635; 93005; 93010; 93306; 99284; C9803

== ENCOUNTER → 2021-09-01 07:32 | Outpatient (CLI) | payer MEDICARE, OTHER, SELFPAY ==
--- NOTE | 2021-09-01 09:12 | PM.TREADMILL ---
Cardiac Stress Test Report Referral & Results Date Patient Seen: 09/01/21 Time Patient Seen: 08:45 Requesting provider: Pablo Salmeron Indication: Angina Rest ECG: NSR Procedure Note: Today, following both written and verbal informed consent, the patient was exercised according to a standard Андрей protocol. The patient exercised for a total of 13 minutes 57 seconds achieving a maximum heart rate of 163. Patient's maximum systolic blood pressure was 180. This was an estimated 14.8 METs. Normal hemodynamic response to exercise. Rare PVCs at peak exercise. [address] deviations in inferior and lateral leads that resolved rapidly with rest. No other EKG changes. Presenting symptom of classical angina was not reproduced on exercise. Excellent exercise capacity (FA I-30% on active scale). Impression: Intermediate probability for ischemia. Exercise capacity was not limited and anginal symptoms were not reproduced. He may well have some narrowing of his arteries, but does not meet criteria for cardiac catheterization. Counseled watchful waiting for evidence of unstable angina. Counseled ongoing efforts at aerobic exercise. Please note: Actual ECG tracings can be found in the PACS system.
[2021-09-01 10:49] LABS: COVID19 -Nasal RAPID Negative (Negative)
== END ==
PROVIDERS: Family Provider Student in an Organized Health Care Education/Training Program; PCP Student in an Organized Health Care Education/Training Program; Referring Provider Student in an Organized Health Care Education/Training Program; Visit Provider Student in an Organized Health Care Education/Training Program
DX: Z20.822 Contact with and (suspected) exposure to COVID-19 (principal); I20.9 Angina pectoris, unspecified
CPT/HCPCS: 87635; 93016; 93017; 93018

== ENCOUNTER 2021-10-28 11:08 | Emergency (ER) | payer MEDICARE, OTHER, SELFPAY ==
[2021-10-28] VITALS (8 sets, daily range): BP systolic 131–166; BP diastolic 77–85; PULSE 50–64; RESP 12–18; TEMP 36.5; O2SAT 94–98; BMI 25.8
--- NOTE | 2021-10-28 11:17 | DI.RAD.S_ITS ---
PROCEDURE: XR CHEST 1V INDICATIONS: chest pain TECHNIQUE: One view of the chest was acquired. COMPARISON: [facility], CR, XR CHEST 1V, 03/28/2019, 17:33. [facility], CR, XR CHEST 1V, 08/29/2021, 6:58. FINDINGS: Surgical changes and devices: Postoperative change of the glenoid can be seen. Lungs and pleura: Lungs are clear. No pleural effusions or pneumothorax. Mediastinum: Mediastinal contours appear normal. Heart size is normal. Bones and chest wall: No suspicious bony lesions. At least 1 remote fracture can be seen involving the left posterior ribs. Overlying soft tissues appear unremarkable. IMPRESSION: No acute abnormality is identified this portable chest study. Dictated by: Yordy Villareal M.D. on 10/28/2021 at 10:53 Approved by: Yordy Villareal M.D. on 10/28/2021 at 10:54
[2021-10-28 11:33] LABS: Add Manual Diff / Slide Review NO; Basophils Absolute Auto 100 /uL (0-100); Basophils Percent Auto 0.9 % (0-2); Eosinophils Absolute Auto 100 /uL (0-450); Eosinophils Percent Auto 1.7 % (2-4); Hematocrit 46.2 % (41-53); Hemoglobin 16.3 g/dL (13.5-17.5); Lymphocytes Absolute Auto 1500 /uL (1100-4500); Lymphocytes Percent Auto 25.1 % (25-40); Mean Corpuscular HGB Conc 35.2 % (30-36); Mean Corpuscular Hemoglobin 31.7 PG (26-34); Mean Corpuscular Volume 90.2 fL (80-100); Monocytes Absolute Auto 500 /uL (0-900); Neutrophils Absolute Auto 3900 /uL (1500-7000); Neutrophils Percent Auto 64.3 % (50-75); Platelet Count 189 X10^3/uL (150-400); Red Blood Cell Count 5.13 X10^6/uL (4.5-5.9); Red Cell Distribution Width 12.8 % (11.6-14.8)
[2021-10-28 11:39] LABS: INR 1.1 (0.9-1.3); Prothrombin Time 12.2 SECONDS (10.1-12.7)
[2021-10-28 11:44] LABS: Alanine Aminotransferase 17 IU/L (<50); Albumin 4.4 g/dL (3.5-5.0); Albumin Globulin Ratio 1.5 (1.0-2.8); Alkaline Phosphatase 81 U/L (38-126); Aspartate Aminotransferase 30 IU/L (17-59); BUN Creatinine Ratio 30.8 (6-22); Bilirubin Total 1.2 mg/dL (0.2-1.3); Blood Urea Nitrogen 24 mg/dL (9-20); Calcium 8.8 mg/dL (8.4-10.2); Carbon Dioxide 23 mmol/L (22-32); Chloride 105 mmol/L (98-107); Creatine Kinase 121 U/L (55-170); Estimated Glomerular Filt Rate > 60 mL/min (>60); Globulin 2.9 g/dL (1.7-4.1); Glucose 101 mg/dL (80-110); HEMOLYSIS 19 (0-50); Lipase 153 U/L (23-300); Magnesium 2.3 mg/dL (1.6-2.3); Potassium 4.2 mmol/L (3.4-5.1); Sodium 139 mmol/L (137-145); Total Protein 7.3 g/dL (6.3-8.2)
[2021-10-28 11:49] LABS: PTT Partial Thromboplastin Tim 28 SECONDS (26-36)
[2021-10-28 11:56] LABS: Troponin I < 0.012 ng/mL (0.01-0.034)
[2021-10-28 11:59] LABS: CKMB % Relative Index 2.1 % (1.5-5.0); Creatine Kinase MB 2.58 ng/mL (<2.37)
--- NOTE | 2021-10-28 12:46 | ED_ITS ---
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 Patient has a history of atypical chest pain, reports having normal stress test in August 2019. Patient denies any lightheadedness or near-syncope, denies any nausea, vomiting, radiation to his arms or jaw, denies any recent illness. States that he has been working outside for the last few days. States that he probably was dehydrated yesterday. Patient states that he has a history of BPH and his PSA has gone up but is stable, denies any urinary retention or dysuria, denies flank pain, states he has been admitted to the hospital for E coli bacteremia from a urine infection. Denies any frequency or urgency symptoms. Related Data Home Medications Medication Instructions Recorded Confirmed Glucosamine Chondroitin 2 tab PO DAILY 03/28/19 05/19/21 calcium carbonate 600 mg-vitamin 2 tab PO DAILY 03/28/19 05/19/21 D3 20 mcg (800 unit) chewable tablet (Caltrate 600 plus D) cholecalciferol (vitamin D3) 50 2,000 unit PO DAILY 03/28/19 05/19/21 mcg (2,000 unit) capsule (Vitamin D3) Previous Rx's Medication Instructions Recorded losartan 25 mg tablet 25 mg PO DAILY #90 tabs 05/19/21 Allergies Allergy/AdvReac Type Severity Reaction Status Date / Time oxycodone [From OxyContin] Allergy Mild sweating, Verified 10/28/21 11:18 nausea azithromycin [AZITHROMYCIN] Allergy Unknown Verified 10/28/21 11:18 Review of Systems <DEWAYNE Barry - Last Filed: 10/28/21 14:43> Review of Systems Narrative: Review of systems is negative for acute abnormalities unless otherwise noted in HPI Patient History <DEWAYNE Barry - Last Filed: 10/28/21 14:43> Medical History Obstructive sleep apnea of adult Pyocele Work related injury (2011) Surgical History H/O thumb surgery History of inguinal hernia repair (1999) History of shoulder surgery (1977) Social History household members: spouse Smoking Status: Never smoker alcohol intake: current substance use type: does not use Smoking Status: Never smoker alcohol intake frequency: 0-2 drinks per day Substance Use Type: does not use Exam <DEWAYNE Barry - Last Filed: 10/28/21 14:43> Narrative Exam Narrative: Reviewed vitals signs and nursing notes. General: cooperative, comfortable, in no acute distress, well groomed HEENT: symmetrical facial expressions, moist mucous membranes Cardiovascular: sinus bradycardia, no peripheral edema, warm extremities, S1, S1 without murmur or rub Respiratory: normal effort, able to speak in complete sentences, without wheezing, stridor, or abnormal breath sounds. No retractions or tachypnea. GI: abdomen soft, nontender to palpation, nondistended, without masses, rebound tenderness or exquisite tenderness with exam. MSK: moves all extremities, neurovascularly intact, no weakness, normal tone Skin: brisk capillary refill, without pallor or erythema Neuro: normal speech and cognition, A&O x3, ambulatory, clear speech Psych: mental status is grossly normal, congruent mood, normal affect, pleasant and cooperative Initial Vital Signs Initial Vital Signs: Vital Signs Temperature 97.7 F 10/28/21 11:18 Pulse Rate 64 10/28/21 11:18 Respiratory Rate 18 10/28/21 11:18 Blood Pressure 153/85 H 10/28/21 11:18 Pulse Oximetry 98 10/28/21 11:18 Oxygen Delivery Method 10/28/21 11:18 <Chano Dinero DO - Last Filed: 10/28/21 14:51> Initial Vital Signs Initial Vital Signs: Vital Signs Temperature 97.7 F 10/28/21 11:18 Pulse Rate 64 10/28/21 11:18 Respiratory Rate 18 10/28/21 11:18 Blood Pressure 153/85 H 10/28/21 11:18 Pulse Oximetry 98 10/28/21 11:18 Oxygen Delivery Method 10/28/21 11:18 Course <Tayler PERLITA RonquilloP - Last Filed: 10/28/21 14:43> Orders Ordered: ED Orders 10/28/21 11:15 Complete Blood Count AUTO DIFF Stat Comprehensive Metabolic Panel Stat Lipase Stat Magnesium Stat Partial Thromboplastin Time Stat Prothrombin Time INR Stat Troponin & CK Cardiac Panel Stat 10/28/21 11:17 XR chest 1V Stat 10/28/21 11:19 EKG-12 Lead Stat 10/28/21 12:57 Urine Microscopic Stat Vital Signs Vital signs: Vital Signs - 8 hr 10/28/21 11:18 10/28/21 11:35 10/28/21 11:36 Temperature 97.7 F Pulse Rate 64 58 L 59 L Respiratory Rate 18 Blood Pressure 153/85 H Pulse Oximetry 98 97 95 Oxygen Delivery Method Room Air 10/28/21 11:36 10/28/21 12:00 10/28/21 12:00 Temperature Pulse Rate 53 L Respiratory Rate Blood Pressure 136/80 131/82 Pulse Oximetry 94 Oxygen Delivery Method 10/28/21 12:24 10/28/21 12:24 10/28/21 12:30 Temperature Pulse Rate 55 L Respiratory Rate Blood Pressure 166/83 H 139/77 Pulse Oximetry 94 Oxygen Delivery Method 10/28/21 12:30 10/28/21 13:00 10/28/21 13:00 Temperature Pulse Rate 53 L 50 L Respiratory Rate 12 Blood Pressure 147/83 H Pulse Oximetry 95 97 Oxygen Delivery Method 10/28/21 13:30 10/28/21 13:30 Temperature Pulse Rate 52 L Respiratory Rate 16 Blood Pressure 135/79 Pulse Oximetry 96 Oxygen Delivery Method Room Air <Chano Dinero DO - Last Filed: 10/28/21 14:51> Orders Ordered: ED Orders 10/28/21 11:15 Complete Blood Count AUTO DIFF Stat Comprehensive Metabolic Panel Stat Lipase Stat Magnesium Stat Partial Thromboplastin Time Stat Prothrombin Time INR Stat Troponin & CK Cardiac Panel Stat 10/28/21 11:17 XR chest 1V Stat 10/28/21 11:19 EKG-12 Lead Stat 10/28/21 12:57 Urine Microscopic Stat Vital Signs Vital signs: Vital Signs - 8 hr 10/28/21 11:18 10/28/21 11:35 10/28/21 11:36 Temperature 97.7 F Pulse Rate 64 58 L 59 L Respiratory Rate 18 Blood Pressure 153/85 H Pulse Oximetry 98 97 95 Oxygen Delivery Method Room Air 10/28/21 11:36 10/28/21 12:00 10/28/21 12:00 Temperature Pulse Rate 53 L Respiratory Rate Blood Pressure 136/80 131/82 Pulse Oximetry 94 Oxygen Delivery Method 10/28/21 12:24 10/28/21 12:24 10/28/21 12:30 Temperature Pulse Rate 55 L Respiratory Rate Blood Pressure 166/83 H 139/77 Pulse Oximetry 94 Oxygen Delivery Method 10/28/21 12:30 10/28/21 13:00 10/28/21 13:00 Temperature Pulse Rate 53 L 50 L Respiratory Rate 12 Blood Pressure 147/83 H Pulse Oximetry 95 97 Oxygen Delivery Method 10/28/21 13:30 10/28/21 13:30 Temperature Pulse Rate 52 L Respiratory Rate 16 Blood Pressure 135/79 Pulse Oximetry 96 Oxygen Delivery Method Room Air MDM - Chest Pain <Tayelr Ricardo [facility] - Last Filed: 10/28/21 14:43> Lab Data Result diagrams: 10/28/21 11:15 10/28/21 11:15 Labs: Lab Results 10/28/21 10/28/21 10/28/21 Range/Units 11:15 11:15 11:15 WBC 6.0 (4.5-11.0) X10^3/uL RBC 5.13 (4.5-5.9) X10^6/uL Hgb 16.3 (13.5-17.5) g/dL Hct 46.2 (41-53) % MCV 90.2 (80-100) fL MCH 31.7 (26-34) PG MCHC 35.2 (30-36) % RDW 12.8 (11.6-14.8) % Plt Count 189 (150-400) X10^3/uL Neut % (Auto) 64.3 (50-75) % Lymph % (Auto) 25.1 (25-40) % [place] % (Auto) 8.0 (3-14) % Eos % (Auto) 1.7 L (2-4) % Baso % (Auto) 0.9 (0-2) % Neut # (Auto) 3900 (3811-1138) /uL Lymph # (Auto) 1500 (4158-5794) /uL [place] # (Auto) 500 (0-900) /uL Eos # (Auto) 100 (0-450) /uL Baso # (Auto) 100 (0-100) /uL PT 12.2 (10.1-12.7) SECONDS INR 1.1 (0.9-1.3) APTT 28 (26-36) SECONDS Sodium 139 (137-145) mmol/L Potassium 4.2 (3.4-5.1) mmol/L Chloride 105 (98-107) mmol/L Carbon Dioxide 23 (22-32) mmol/L BUN 24 H (9-20) mg/dL Creatinine 0.78 (0.66-1.25) mg/dL Estimated GFR > 60 (>60) mL/min BUN/Creatinine Ratio 30.8 H (6-22) Glucose 101 (80-110) mg/dL Calcium 8.8 (8.4-10.2) mg/dL Magnesium 2.3 (1.6-2.3) mg/dL Total Bilirubin 1.2 (0.2-1.3) mg/dL AST 30 (17-59) IU/L ALT 17 (<50) IU/L Alkaline Phosphatase 81 (38-126) U/L Total Creatine Kinase 121 (55-170) U/L CK-MB (CK-2) 2.58 H (<2.37) ng/mL CK-MB (CK-2) Rel Index 2.1 (1.5-5.0) % Troponin I < 0.012 (0.01-0.034) ng/mL Total Protein 7.3 (6.3-8.2) g/dL Albumin 4.4 (3.5-5.0) g/dL Globulin 2.9 (1.7-4.1) g/dL Albumin/Globulin Ratio 1.5 (1.0-2.8) Lipase 153 (23-300) U/L Urine RBC (0-5/HPF) Urine WBC (0-5/HPF) Ur Squamous Epith Cells (0-5/HPF) Urine Bacteria (None) Ur Culture Indicated? 10/28/21 Range/Units 12:57 WBC (4.5-11.0) X10^3/uL RBC (4.5-5.9) X10^6/uL Hgb (13.5-17.5) g/dL Hct (41-53) % MCV (80-100) fL MCH (26-34) PG MCHC (30-36) % RDW (11.6-14.8) % Plt Count (150-400) X10^3/uL Neut % (Auto) (50-75) % Lymph % (Auto) (25-40) % [place] % (Auto) (3-14) % Eos % (Auto) (2-4) % Baso % (Auto) (0-2) % Neut # (Auto) (2934-7184) /uL Lymph # (Auto) (4763-8142) /uL [place] # (Auto) (0-900) /uL Eos # (Auto) (0-450) /uL Baso # (Auto) (0-100) /uL PT (10.1-12.7) SECONDS INR (0.9-1.3) APTT (26-36) SECONDS Sodium (137-145) mmol/L Potassium (3.4-5.1) mmol/L Chloride (98-107) mmol/L Carbon Dioxide (22-32) mmol/L BUN (9-20) mg/dL Creatinine (0.66-1.25) mg/dL Estimated GFR (>60) mL/min BUN/Creatinine Ratio (6-22) Glucose (80-110) mg/dL Calcium (8.4-10.2) mg/dL Magnesium (1.6-2.3) mg/dL Total Bilirubin (0.2-1.3) mg/dL AST (17-59) IU/L ALT (<50) IU/L Alkaline Phosphatase (38-126) U/L Total Creatine Kinase (55-170) U/L CK-MB (CK-2) (<2.37) ng/mL CK-MB (CK-2) Rel Index (1.5-5.0) % Troponin I (0.01-0.034) ng/mL Total Protein (6.3-8.2) g/dL Albumin (3.5-5.0) g/dL Globulin (1.7-4.1) g/dL Albumin/Globulin Ratio (1.0-2.8) Lipase (23-300) U/L Urine RBC None seen (0-5/HPF) Urine WBC 0-1/hpf (0-5/HPF) Ur Squamous Epith Cells None seen (0-5/HPF) Urine Bacteria None seen (None) Ur Culture Indicated? Cult not indicated Urine Dip Bedside Urine Glucose Negative Bedside Urine Bilirubin - Negative Bedside Urine Ketone - Negative Urine Specific [place] 1.020 Bedside Urine Occult Blood - Negative Bedside Urine pH 6.0 Bedside Urine Protein - Negative Bedside Urine Urobilinogen - Negative Bedside Urine Nitrite - Negative Bedside Urine Leukocytes - Negative Esterase Imaging Data Chest x-ray: Radiologist's Impression: PROCEDURE:? XR CHEST 1V ? INDICATIONS:? chest pain ? TECHNIQUE:? One view of the chest was acquired.? ? COMPARISON:? [facility], CR, XR CHEST 1V, 03/28/2019, 17:33.? [facility], CR, XR CHEST 1V, 08/29/2021, 6:58. ? FINDINGS:? ? Surgical changes and devices:? Postoperative change of the glenoid can be seen. ? Lungs and pleura:? Lungs are clear.? No pleural effusions or pneumothorax.? ? Mediastinum:? Mediastinal contours appear normal.? Heart size is normal.? ? Bones and chest wall:? No suspicious bony lesions.? At least 1 remote fracture can be seen involving the left posterior ribs.? Overlying soft tissues appear unremarka ble.? IMPRESSION:? No acute abnormality is identified this portable chest study. ? ? Dictated by: Yordy Villareal M.D. on 10/28/2021 at 10:53 ? ? Approved by: Yordy Villareal M.D. on 10/28/2021 at 10:54 ? ECG Data Interpretation: EKG independently reviewed by myself at 11:20 showing sinus bradycardia at 56 bpm with regular axis and intervals. No STEMI, ST segment changes, arrhythmia, or acute ischemic changes. MDM Narrative Medical decision making narrative: This is a 66-year-old male presents to the emergency department after concerning episode of chest pressure, tightness across his upper back, diaphoresis with resolution right afterwards which happened yesterday. Patient told the triage nurse that he felt chest pressure today but on my exam with him he denies this at this time. His symptoms are reproducible with left-sided chest palpation. Patient's primary care provider is Dr. Norris, he has a history of atypical chest pain but has had a normal stress test, echocardiogram in August 2021. He takes losartan, and baby aspirin daily. His heart score is 2, he has sinus bradycardia on his EKG today, negative troponin, no leukocytosis, a normal UA without signs of infection, stable creatinine, CK-MB is elevated at 2.58 as his only abnormal lab results. 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 He discuss his cardiac history at length, I do not think he has an infection today, he denies any upper respiratory symptoms, does not have chest pain, or any neurologic deficit. No ST elevation or positive troponin on his workup today, heart sounds are normal S1-S2 without murmur gallop or rub. Encourage patient to follow-up with Dr. Salmeron his primary care provider. Chest x-ray does not show any acute abnormality either. No recommendations to change any medications or other. I gave him Dr. Ferrera contact if he would like to follow-up with cardiology as this is who completed his echocardiogram. Multiple causes of chest pain considered including CT, PE, pneumothorax, pneumonia, aortic dissection, and pleurisy. Patient reports no radiation, no diaphoresis, no provocation with exertion, and no vomiting Patient is appropriate and amenable to discharge home. Vital signs are stable on repeat examination is unremarkable. Patient has been informed of results. Patient has been given strict return to ER precautions for any new or worsening symptoms. Patient understands to follow up closely with outpatient providers as instructed. Patient understands plan and agrees to discharge home. All questions and concerns answered at this time. <Chano Dinero, DO - Last Filed: 10/28/21 14:51> Lab Data Labs: Lab Results 10/28/21 10/28/21 10/28/21 Range/Units 11:15 11:15 11:15 WBC 6.0 (4.5-11.0) X10^3/uL RBC 5.13 (4.5-5.9) X10^6/uL Hgb 16.3 (13.5-17.5) g/dL Hct 46.2 (41-53) % MCV 90.2 (80-100) fL MCH 31.7 (26-34) PG MCHC 35.2 (30-36) % RDW 12.8 (11.6-14.8) % Plt Count 189 (150-400) X10^3/uL Neut % (Auto) 64.3 (50-75) % Lymph % (Auto) 25.1 (25-40) % [place] % (Auto) 8.0 (3-14) % Eos % (Auto) 1.7 L (2-4) % Baso % (Auto) 0.9 (0-2) % Neut # (Auto) 3900 (2323-9725) /uL Lymph # (Auto) 1500 (5611-1432) /uL [place] # (Auto) 500 (0-900) /uL Eos # (Auto) 100 (0-450) /uL Baso # (Auto) 100 (0-100) /uL PT 12.2 (10.1-12.7) SECONDS INR 1.1 (0.9-1.3) APTT 28 (26-36) SECONDS Sodium 139 (137-145) mmol/L Potassium 4.2 (3.4-5.1) mmol/L Chloride 105 (98-107) mmol/L Carbon Dioxide 23 (22-32) mmol/L BUN 24 H (9-20) mg/dL Creatinine 0.78 (0.66-1.25) mg/dL Estimated GFR > 60 (>60) mL/min BUN/Creatinine Ratio 30.8 H (6-22) Glucose 101 (80-110) mg/dL Calcium 8.8 (8.4-10.2) mg/dL Magnesium 2.3 (1.6-2.3) mg/dL Total Bilirubin 1.2 (0.2-1.3) mg/dL AST 30 (17-59) IU/L ALT 17 (<50) IU/L Alkaline Phosphatase 81 (38-126) U/L Total Creatine Kinase 121 (55-170) U/L CK-MB (CK-2) 2.58 H (<2.37) ng/mL CK-MB (CK-2) Rel Index 2.1 (1.5-5.0) % Troponin I < 0.012 (0.01-0.034) ng/mL Total Protein 7.3 (6.3-8.2) g/dL Albumin 4.4 (3.5-5.0) g/dL Globulin 2.9 (1.7-4.1) g/dL Albumin/Globulin Ratio 1.5 (1.0-2.8) Lipase 153 (23-300) U/L Urine RBC (0-5/HPF) Urine WBC (0-5/HPF) Ur Squamous Epith Cells (0-5/HPF) Urine Bacteria (None) Ur Culture Indicated? 10/28/21 Range/Units 12:57 WBC (4.5-11.0) X10^3/uL RBC (4.5-5.9) X10^6/uL Hgb (13.5-17.5) g/dL Hct (41-53) % MCV (80-100) fL MCH (26-34) PG MCHC (30-36) % RDW (11.6-14.8) % Plt Count (150-400) X10^3/uL Neut % (Auto) (50-75) % Lymph % (Auto) (25-40) % [place] % (Auto) (3-14) % Eos % (Auto) (2-4) % Baso % (Auto) (0-2) % Neut # (Auto) (2255-8565) /uL Lymph # (Auto) (7818-6410) /uL [place] # (Auto) (0-900) /uL Eos # (Auto) (0-450) /uL Baso # (Auto) (0-100) /uL PT (10.1-12.7) SECONDS INR (0.9-1.3) APTT (26-36) SECONDS Sodium (137-145) mmol/L Potassium (3.4-5.1) mmol/L Chloride (98-107) mmol/L Carbon Dioxide (22-32) mmol/L BUN (9-20) mg/dL Creatinine (0.66-1.25) mg/dL Estimated GFR (>60) mL/min BUN/Creatinine Ratio (6-22) Glucose (80-110) mg/dL Calcium (8.4-10.2) mg/dL Magnesium (1.6-2.3) mg/dL Total Bilirubin (0.2-1.3) mg/dL AST (17-59) IU/L ALT (<50) IU/L Alkaline Phosphatase (38-126) U/L Total Creatine Kinase (55-170) U/L CK-MB (CK-2) (<2.37) ng/mL CK-MB (CK-2) Rel Index (1.5-5.0) % Troponin I (0.01-0.034) ng/mL Total Protein (6.3-8.2) g/dL Albumin (3.5-5.0) g/dL Globulin (1.7-4.1) g/dL Albumin/Globulin Ratio (1.0-2.8) Lipase (23-300) U/L Urine RBC None seen (0-5/HPF) Urine WBC 0-1/hpf (0-5/HPF) Ur Squamous Epith Cells None seen (0-5/HPF) Urine Bacteria None seen (None) Ur Culture Indicated? Cult not indicated Urine Dip Bedside Urine Glucose Negative Bedside Urine Bilirubin - Negative Bedside Urine Ketone - Negative Urine Specific [place] 1.020 Bedside Urine Occult Blood - Negative Bedside Urine pH 6.0 Bedside Urine Protein - Negative Bedside Urine Urobilinogen - Negative Bedside Urine Nitrite - Negative Bedside Urine Leukocytes - Negative Esterase Discharge Plan Departure Patient Disposition: Home Clinical Impression: Atypical angina Instructions: DI for Angina, DI for Atypical Chest Pain Activity Restrictions/Additional Instructions: *You have been diagnosed with an episode atypical chest pain with suspicious symptoms however your workup today is quite reassuring that there was no cardiac strain even if there was a minor event. Your vital signs are normal today, your EKG is normal without any changes, I do not think that this is related to a vascular occlusion. It is likely that you may have been dehydrated and due to your exertion level you had an episode of postural hypotension or your heart did not get enough blood flow for some reason and it caused her symptoms. I am glad that has resolved, please consider your hydration status when working and having physical exertion. Please follow-up with as needed, we will call you if your urine grows anything concerning or has any bacteria under the microscope. Please stay hydrated, your lab work today shows that your electrolytes are in normal ranges, your blood counts are normal, your kidney function, liver function and pancreas appear normal as well. If you develop a fever or a sore throat, please take a COVID test. You can talk with Dr. Salmeron about following up with Cardiology, according to your echocardiogram and stress test, there does not appear to be any concerns for that at this time. *What to do: *Please continue to take your regular medications as directed. [ ] New medication prescriptions sent to your pharmacy: [ ] [ ] New medication written as a paper prescription [x ] No new medications given *Please follow up with your primary care provider in 2-3 days, call for an appointment. Let them know you were seen in the Emergency Department and that we asked that you be seen for follow-up. We will electronically transmit a record of today's note if your PCP is in our system *If you do not have a primary care provider please contact [phone] to establish care with one of the [facility] primary care providers. *Return to Emergency Department if you should have any new, worsening, or concerning symptoms, such as [fever greater than 101F, chills, worsening pain, persistent vomiting or other bothersome symptoms]. Prescriptions: No Action losartan 25 mg tablet 25 mg PO DAILY Qty: 90 3RF cholecalciferol (vitamin D3) [Vitamin D3] 50 mcg (2,000 unit) Capsule 2,000 unit PO DAILY Caltrate 600 plus D 600 mg (1,500 mg)-800 unit Tablet,Chewable 2 tab PO DAILY Glucosamine Chondroitin 2 tab PO DAILY Referrals: Pablo Salmeron MD [Primary Care Provider] - Art Ferrera MD [Physician] - Visit Report Forms: Patient Portal/API <Chano Dinero DO - Last Filed: 10/28/21 14:51> [facility] Cosdorisature Attestation: Dr Dinero Co-Sign Statement: I was available for consultation during this patient's emergency department visit. This chart is signed by myself for administrative purposes only. I did not have direct contact with this patient during this visit. They were seen independently by the APC.
[2021-10-28 13:53] LABS: Bacteria Urine None Seen; Culture Indicated Urine Cult Not Indicated; RBC Urine None Seen (0-5/HPF); Squamous Epithelial Cell Urine None Seen (0-5/HPF); WBC Urine 0-1/HPF (0-5/HPF)
== END 2021-10-28 13:39 | disposition home or self-care (01) ==
PROVIDERS: Emergency Medicine; Emergency Provider Nurse Practitioner Critical Care Medicine; Family Provider Student in an Organized Health Care Education/Training Program; PCP Student in an Organized Health Care Education/Training Program
DX: I20.8 Other forms of angina pectoris (principal); R07.9 Chest pain, unspecified
CPT/HCPCS: 36415; 71045; 80053; 81003; 81015; 82550; 82553; 83690; 83735; 84484; 85025; 85610; 85730; 93005; 99283; 99284

== ENCOUNTER → 2023-02-13 08:48 | Outpatient (CLI) | payer MEDICARE, OTHER, SELFPAY ==
--- NOTE | 2023-02-13 08:50 | DI.RAD.S_ITS ---
PROCEDURE: XR CHEST 2V INDICATIONS: chronic cough TECHNIQUE: 2 views of the chest were acquired. COMPARISON: [facility], CR, XR CHEST 1V, 10/28/2021, 11:39. [facility], CR, XR CHEST 1V, 08/29/2021, 6:58. FINDINGS: Surgical changes and devices: Surgical nails project over the glenoid. Lungs and pleura: Lungs are clear. No pleural effusions or pneumothorax. Mediastinum: Mediastinal contours are normal. Heart size is normal. Bones and chest wall: No suspicious bony abnormalities. Soft tissues appear unremarkable. IMPRESSION: No acute cardiopulmonary abnormality is seen. Dictated by: Joseluis Haines M.D. on 02/13/2023 at 10:16 Approved by: Joseluis Haines M.D. on 02/13/2023 at 10:16
[2023-02-13 10:24] LABS: Alanine Aminotransferase 29 IU/L (<50); Albumin 4.2 g/dL (3.5-5.0); Albumin Globulin Ratio 1.6 (1.0-2.8); Alkaline Phosphatase 75 U/L (38-126); BUN Creatinine Ratio 29.6 (6-22); Bilirubin Total 1.2 mg/dL (0.2-1.3); Blood Urea Nitrogen 21 mg/dL (9-20); Calcium 9.5 mg/dL (8.4-10.2); Carbon Dioxide 32 mmol/L (22-32); Chloride 103 mmol/L (98-107); Cholesterol 214 mg/dL (140-199); Estimated Glomerular Filt Rate > 60 mL/min (>60); Globulin 2.6 g/dL (1.7-4.1); Glucose 95 mg/dL (80-110); HDL Cholesterol 67 mg/dL (40-60); HEMOLYSIS < 15 (0-50); LDL Cholesterol Calculated 134 mg/dL (<100); Potassium 4.9 mmol/L (3.4-5.1); Sodium 138 mmol/L (137-145); Total Protein 6.8 g/dL (6.3-8.2); Triglycerides 64 mg/dL (35-150)
[2023-02-13 11:03] LABS: Hep C Virus Ab w/Reflex Quant NEGATIVE s/c (NEGATIVE)
[2023-02-16 14:44] LABS: Aspartate Aminotransferase 34 IU/L (17-59)
== END ==
PROVIDERS: Family Provider Student in an Organized Health Care Education/Training Program; PCP Family Medicine; Referring Provider Family Medicine; Visit Provider Family Medicine
DX: I10 Essential (primary) hypertension (principal); Z00.00 Encounter for general adult medical examination without abnormal findings; R05.3 Chronic cough; Z12.5 Encounter for screening for malignant neoplasm of prostate; Z11.59 Encounter for screening for other viral diseases
CPT/HCPCS: 36415; 71046; 80053; 80061; 86803

== ENCOUNTER → 2024-02-16 07:52 | Outpatient (CLI) | payer MEDICARE, OTHER, SELFPAY ==
[2024-02-16 08:51] LABS: Alanine Aminotransferase 23 IU/L (<50); Albumin 4.2 g/dL (3.5-5.0); Albumin Globulin Ratio 1.8 (1.0-2.8); Alkaline Phosphatase 81 U/L (38-126); Aspartate Aminotransferase 32 IU/L (17-59); BUN Creatinine Ratio 23.3 (6-22); Bilirubin Total 1.1 mg/dL (0.2-1.3); Blood Urea Nitrogen 17 mg/dL (9-20); Calcium 9.6 mg/dL (8.4-10.2); Carbon Dioxide 30 mmol/L (22-32); Chloride 106 mmol/L (98-107); Cholesterol 206 mg/dL (140-199); Estimated Glomerular Filt Rate > 60 mL/min (>60); Globulin 2.3 g/dL (1.7-4.1); Glucose 91 mg/dL (80-110); HDL Cholesterol 70 mg/dL (40-60); HEMOLYSIS < 15 (0-50); LDL Cholesterol Calculated 122 mg/dL (<100); Potassium 5.1 mmol/L (3.4-5.1); Sodium 138 mmol/L (137-145); Total Protein 6.5 g/dL (6.3-8.2); Triglycerides 71 mg/dL (35-150)
[2024-02-16 09:20] LABS: Prostate Specific Antigen Scrn 2.66 ng/mL (0.1-4.0)
== END ==
LOC: LAB 07:53
PROVIDERS: PCP Family Medicine; Referring Provider Family Medicine; Visit Provider Family Medicine
DX: I10 Essential (primary) hypertension (principal); Z12.5 Encounter for screening for malignant neoplasm of prostate; Z00.00 Encounter for general adult medical examination without abnormal findings; E78.5 Hyperlipidemia, unspecified
CPT/HCPCS: 36415; 80053; 80061; G0103

== ENCOUNTER → 2024-10-17 14:23 | Outpatient (CLI) | payer MEDICARE, OTHER, SELFPAY ==
--- NOTE | 2024-10-17 14:25 | DI.RAD.S_ITS ---
PROCEDURE: XR CHEST 2V INDICATIONS: Right side chest pain s/p fall August TECHNIQUE: 2 views of the chest were acquired. COMPARISON: [facility], CR, XR CHEST 2V, 02/13/2023, 8:50. FINDINGS: Surgical changes and devices: Surgical screws again seen projected over the shoulders. Lungs and pleura: Lungs are clear. No pleural effusions or pneumothorax. Mediastinum: Mediastinal contours are normal. Heart size is normal. Bones and chest wall: Healed right posterior rib fracture deformities. No suspicious bony abnormalities. Soft tissues appear unremarkable. IMPRESSION: No acute cardiopulmonary abnormality is seen. Dictated by: Felice ZAVALA Interpreted: Joseluis Haines MD on 10/17/2024 at 14:59 Transcribed by: JUSTINE on 10/22/2024 at 13:43 Approved by: Leon Borrero M.D. on 10/22/2024 at 16:42
== END ==
PROVIDERS: PCP Family Medicine; Referring Provider Family Medicine; Visit Provider Family Medicine
DX: R07.9 Chest pain, unspecified (principal)
CPT/HCPCS: 71046